=== PATIENT | male | born 1930 | race Caucasian/White ===

== ENCOUNTER 2017-11-26 01:04 | Inpatient (IN) ==
--- NOTE | 2017-11-26 01:30 | ED ---
HPI General Chief complaint: Fall Stated complaint: Fall/Back Pain Time Seen by Provider: 11/26/17 01:25 Source: patient and EMS Mode of arrival: EMS History of Present Illness HPI narrative: The patient is an 87 year old male who presents to the [facility] emergency department with a history of reportedly slipping and falling when getting into the shower prior to arrival. The patient reports that he landed on his back. The patient reports having low back pain at the level of his waist. He denies having any new numbness or tingling to his extremities or weakness of his extremities. He denies hitting his head or losing consciousness. The patient was brought in by ambulance services. The patient was noted prior to arrival to have O2 saturations on room air. The patient was placed on 2 L nasal cannula O2. The patient denies having any chest pain, chest pressure, or shortness of breath. He reports that the pain in his back is an aching sensation in his 5 out of 10 in severity. The patient's recent medical history is significant for being admitted to [facility] related to a GI bleed. This occurred on November 14, 2017. He denies having any abdominal pain, nausea, vomiting, or diarrhea. He reports that his last bowel movement was 2 days ago. He denies having any blood in his stool or black or tarry stools recently. On review of systems otherwise, the patient denies having any cough or congestion, neck pain, chest pain, shortness of breath, urinary symptoms, or other neurologic symptoms. Related Data Home Medications Medication Instructions Recorded Confirmed cholecalciferol (vitamin D3) 1,000 unit PO DAILY 11/26/17 11/26/17 colestipol 3 g PO BID 11/26/17 11/26/17 cyanocobalamin (vitamin B-12) 1,000 mcg PO DAILY 11/26/17 11/26/17 gemfibrozil 600 mg PO DAILY 11/26/17 11/26/17 [id number] oil-[id number].casei 11/26/17 pantoprazole 40 mg PO BID 11/26/17 11/26/17 sucralfate 1 g PO QID 11/26/17 11/26/17 Allergies Allergy/AdvReac Type Severity Reaction Status Date / Time No Known Allergies Allergy Uncoded 01/20/16 11:18 Review of Systems ROS Unobtainable All other systems reviewed negative except as stated in HPI [facility] Medical History Medical History GI bleed (Acute) Hypercholesteremia (Acute) Hypertension (Acute) Surgical History Surgical History H/O right knee surgery (Acute) S/P cataract surgery (Acute) Social History Social History Substance History: No History of Abuse Smoking Status: Never smoker How Often Do You Have a Drink Containing Alcohol: Never Immunization History Tetanus Immunization: >5 Years Hx Influenza Vaccine This Season: Yes Exam Const General: cooperative, no acute distress and well developed Nutritional Appearance: well nourished Orientation: alert, awake and oriented x3 HENMT Head: normocephalic and atraumatic Nose: no nasal discharge and no epistaxis Mouth: moist mucous membranes Eyes Sclera: normal sclerae Pupils: PERRL Neck Neck: trachea midline and no JVD Resp Effort & Inspection: no use of accessory muscles Auscultation: crackles and other (The patient is noted to have crackles audible in the left lower lung base, no wheezes or rales. No accessory muscle use noted. No conversational dyspnea.) Cardio Rate: regular rate Rhythm: regular rhythm Heart Sounds: murmur (1/6 systolic murmur audible, no gallops or rubs) systolic GI Inspection: non-distended Palpation: soft, no hepatosplenomegaly and tender (Patient reports having some tenderness just below his ventral abdominal hernia. The patient has a ventral abdominal hernia that is easily reducible in the center and just to the left of the umbilicus) Auscultation: normal bowel sounds Back/Spine/Pelvis Back: no CVA tenderness Cervical Spine: normal cervical lordosis and No cervical spinal tenderness Thoracic/Lumbar Spine: No thoracic spinal tenderness, No lumbar spinal tenderness and other (The patient reports tenderness on palpation along bilateral lower lumbar paraspinal musculature and overlying the upper portion of the sacrum bilaterally. There is no erythema or ecchymosis. No step-off or crepitus.) Skin General: dry skin (warm) Neuro General: alert, awake and oriented x3 Cranial Nerves: CN's II-XI intact bilaterally Speech: speech normal Motor: strength 5/5 throughout and no movement abnormalities noted Sensory Exam: no sensory deficits noted Extrem General: normal to inspection, no clubbing, no cyanosis and edema (1+ pitting edema bilateral lower extremities, reportedly chronic and no worse than usual) Laterality: bilaterally Psych Mood: congruent mood Affect: normal affect Judgment: judgment good Course Consultations Consultation #1: The patient's case including history, pertinent physical examination findings, and laboratory studies were discussed with Dr. Junior. It was agreed that the patient would be admitted to the hospitalist service. Time: 03:49 Initial Documented Vital Signs Temperature 97.6 F 11/26/17 01:12 Pulse Rate 84 11/26/17 01:12 Respiratory Rate 20 11/26/17 01:12 Blood Pressure 128/59 L 11/26/17 01:12 Pulse Oximetry 94 L 11/26/17 01:12 Last Documented Vital Signs Temperature 97.6 F 11/26/17 01:12 Pulse Rate 83 11/26/17 03:55 Respiratory Rate 18 11/26/17 03:55 Blood Pressure 155/67 H 11/26/17 03:55 Pulse Oximetry 98 11/26/17 03:55 Medical Decision Making MDM Narrative Medical decision making narrative: During the course of the patient's emergency department visit, the patient's history, examination, and differential diagnosis were reviewed with the patient. The patient was placed on a cardiac specialist with oximetry and frequent blood pressure monitoring. The patient had IV access obtained and blood work sent for analysis. The diagnostic evaluation was started regarding this fall and low back pain. The patient was initially provided normal saline 500 mL bolus 1. Laboratory studies are remarkable for a white count of 7, hemoglobin is 8.3, platelets are 240 with 86.4 neutrophils, 3 myelocytes, PT 11.8, PTT 25.2, chemistry is remarkable for a troponin I of less than 0.02, sodium 134, glucose 113, protein corrected calcium is elevated at 12.6, GFR 25, creatinine 2.5, BUN 76, alk phos 155, albumin 2.5, lipase 84, magnesium 2.2. The patient has laboratory studies available from his recent admission to [facility] N a pack at the bedside. The patient's creatinine was last noted to be 1.11 on November 17, hemoglobin last 9.7. Chest x-ray shows no acute cardiopulmonary disease. CT scan of the T-spine shows degenerative changes, no other acute abnormality, CT scan of the lumbar spine shows fracture deformity at L2 vertebral body with invagination superior endplate and no retropulsion. Multiple lucent and sclerotic regions consistent with osseous metastatic disease. The patient denies any known prior history of metastatic cancer. He does however report that 8 months ago he had a rectal cancer scraped by Dr. White. The patient's results were discussed with the patient, including the plan of care. I explained that further testing and/ or monitoring is indicated based on the patient's history, examination, and/ or laboratory findings. Therefore, I recommended admission for additional evaluation. The patient expressed understanding and was agreeable with this plan. The patient was admitted to the hospital in stable condition and sent to a bed under the care of the [facility] service. Differential Diagnosis Differential Diagnosis: T-spine fracture, versus lumbar spine fracture, versus contusion Medical Records Medical records reviewed: Yes I reviewed the patient's medical records. Lab Data Lab results reviewed: Yes I reviewed the patient's lab results. Result diagrams: 11/26/17 01:30 11/26/17 01:30 Lab Results 11/26/17 11/26/17 11/26/17 Range/Units 01:30 01:30 01:30 WBC 7.0 (4.0-11.0) th/mm3 RBC 2.66 L (4.50-5.90) mil/mm3 Hgb 8.3 L (13.0-17.0) gm/dL Hct 24.4 L (39.0-51.0) % MCV 91.7 (80.0-100.0) fL MCH 31.2 (27.0-34.0) pg MCHC 34.0 (32.0-36.0) % RDW 14.5 (11.6-17.2) % Plt Count 240 (150-450) th/mm3 MPV 8.1 (7.0-11.0) fL Prelim Diff (Auto) Slide review pending Neut % (Auto) 86.4 H (16.0-70.0) % Lymph % (Auto) 4.2 L (9.0-44.0) % [place] % (Auto) 7.8 (0.0-8.0) % Eos % (Auto) 1.1 (0.0-4.0) % Baso % (Auto) 0.5 (0.0-2.0) % Neut # (Auto) 6.1 (1.8-7.7) th/mm3 Lymph # (Auto) 0.3 L (1.0-4.8) th/mm3 [place] # (Auto) 0.5 (0.0-0.9) th/mm3 Eos # (Auto) 0.1 (0.0-0.4) th/mm3 Baso # (Auto) 0.0 (0.0-0.2) th/mm3 WBC Differential Manual diff final Seg Neuts % (Manual) 74 H (16-70) % Band Neuts % (Manual) 7 H (0-6) % Lymphocytes % (Manual) 6 L (9-44) % Monocytes % (Manual) 9 H (0-8) % Eosinophils % (Manual) 1 (0-4) % Myelocytes % (Man) 3 H (0-0) % Abs Neuts (Manual) 5.9 (1.8-7.7) th/mm3 Differential Comment . Platelet Estimate Normal (Normal) Platelet Morphology Normal (Normal) Ovalocytes 1+ H (None) PT (9.8-11.6) sec INR Ratio APTT (24.3-30.1) sec Sodium 134 L (136-145) meq/L Potassium 4.6 (3.5-5.1) meq/L Chloride 99 (98-107) meq/L Carbon Dioxide 23.9 (21.0-32.0) meq/L Anion Gap 11 (5-15) meq/L BUN 76 H (7-18) mg/dL Creatinine 2.50 H (0.60-1.30) mg/dL Estimated GFR 25 L (>89) mL/min Random Glucose 113 H (74-106) mg/dL Calcium 12.4 H* (8.5-10.1) mg/dL Prot Corrected Calcium 12.6 H* (8.5-10.1) mg/dL Magnesium 2.2 (1.5-2.5) mg/dL Total Bilirubin 0.4 (0.2-1.0) mg/dL AST 24 (15-37) U/L ALT 22 (12-78) U/L Alkaline Phosphatase 155 H (45-117) U/L Total Creatine Kinase 61 (39-308) U/L Troponin I Less than 0.02 L (0.02-0.05) ng/mL B-Natriuretic Peptide 75 (0-100) pg/mL Total Protein 7.0 (6.4-8.2) g/dL Albumin 2.5 L (3.4-5.0) g/dL Lipase 84 (73-393) U/L 11/26/17 Range/Units 02:30 WBC (4.0-11.0) th/mm3 RBC (4.50-5.90) mil/mm3 Hgb (13.0-17.0) gm/dL Hct (39.0-51.0) % MCV (80.0-100.0) fL MCH (27.0-34.0) pg MCHC (32.0-36.0) % RDW (11.6-17.2) % Plt Count (150-450) th/mm3 MPV (7.0-11.0) fL Prelim Diff (Auto) Neut % (Auto) (16.0-70.0) % Lymph % (Auto) (9.0-44.0) % [place] % (Auto) (0.0-8.0) % Eos % (Auto) (0.0-4.0) % Baso % (Auto) (0.0-2.0) % Neut # (Auto) (1.8-7.7) th/mm3 Lymph # (Auto) (1.0-4.8) th/mm3 [place] # (Auto) (0.0-0.9) th/mm3 Eos # (Auto) (0.0-0.4) th/mm3 Baso # (Auto) (0.0-0.2) th/mm3 WBC Differential Seg Neuts % (Manual) (16-70) % Band Neuts % (Manual) (0-6) % Lymphocytes % (Manual) (9-44) % Monocytes % (Manual) (0-8) % Eosinophils % (Manual) (0-4) % Myelocytes % (Man) (0-0) % Abs Neuts (Manual) (1.8-7.7) th/mm3 Differential Comment Platelet Estimate (Normal) Platelet Morphology (Normal) Ovalocytes (None) PT 11.8 H (9.8-11.6) sec INR 1.2 Ratio APTT 25.2 (24.3-30.1) sec Sodium (136-145) meq/L Potassium (3.5-5.1) meq/L Chloride (98-107) meq/L Carbon Dioxide (21.0-32.0) meq/L Anion Gap (5-15) meq/L BUN (7-18) mg/dL Creatinine (0.60-1.30) mg/dL Estimated GFR (>89) mL/min Random Glucose (74-106) mg/dL Calcium (8.5-10.1) mg/dL Prot Corrected Calcium (8.5-10.1) mg/dL Magnesium (1.5-2.5) mg/dL Total Bilirubin (0.2-1.0) mg/dL AST (15-37) U/L ALT (12-78) U/L Alkaline Phosphatase (45-117) U/L Total Creatine Kinase (39-308) U/L Troponin I (0.02-0.05) ng/mL B-Natriuretic Peptide (0-100) pg/mL Total Protein (6.4-8.2) g/dL Albumin (3.4-5.0) g/dL Lipase (73-393) U/L Imaging Data Radiologist's impression: Chest X-Ray 11/26/17 01:27 CONCLUSION: No acute cardiopulmonary disease. Lumbar Spine CT 11/26/17 01:27 CONCLUSION: 1. Mild fracture deformity of the L2 vertebral body with invagination superior endplate and no retropulsion. 2. Multiple lucent and sclerotic regions consistent with osseous metastatic disease. 3. Moderate central canal stenosis at L4-5 secondary to disc protrusion versus bulge and degenerative change involving the facet joints. Thoracic Spine CT 11/26/17 01:27 CONCLUSION: 1. No acute fracture or malalignment. 2. Multiple subtle lytic lesions most characteristic of metastatic disease.. 3. Disc osteophyte complex at C6-7 which appears unchanged from the prior thoracic CT. Discharge Plan Discharge Disposition Patient Disposition: 30 Still Patient Discharge Details Diagnosis: Metastatic disease, Fall, Compression fracture of L2, ELIAS (acute kidney injury) , Hypercalcemia Physicians Team ED Provider: Anamaria Funez Primary Care Provider: Ora Manley Attending Provider: Mariposa Lynne Other Providers: Octavio Garay ; Shannan Campbell Discharge Interventions Interventions: ED Discharge Assessment Last Done: 11/26/17 06:07 Status ED Status: Left Department Discharge Information Discharge Date/Time: 11/26/17 05:30
[2017-11-26 01:56] LABS: Baso % (Auto) 0.5 % (0.0-2.0); Eos # (Auto) 0.1 th/mm3 (0.0-0.4); Eos % (Auto) 1.1 % (0.0-4.0); Hematocrit 24.4 % (39.0-51.0); Hemoglobin 8.3 gm/dL (13.0-17.0); Lymph # (Auto) 0.3 th/mm3 (1.0-4.8); Lymph % (Auto) 4.2 % (9.0-44.0); Mean Corpuscular Hemoglobin 31.2 pg (27.0-34.0); Mean Corpuscular Volume 91.7 fL (80.0-100.0); Mean Platelet Volume 8.1 fL (7.0-11.0); Mono # (Auto) 0.5 th/mm3 (0.0-0.9); Mono % (Auto) 7.8 % (0.0-8.0); Neut # (Auto) 6.1 th/mm3 (1.8-7.7); Neut % (Auto) 86.4 % (16.0-70.0); Platelet Count 240 th/mm3 (150-450); Red Blood Count 2.66 mil/mm3 (4.50-5.90); Red Cell Distribution Width 14.5 % (11.6-17.2)
--- NOTE | 2017-11-26 02:02 | XR ---
EXAM DATE: 11/26/2017 1:55 AM EDT AGE/SEX: 87 years / Male INDICATIONS: Fall today, back and chest pain. CLINICAL DATA: This is the patient's initial encounter. Patient reports that signs and symptoms have been present for 1 day and indicates a pain score of 4/10. MEDICAL/SURGICAL HISTORY: None. None. COMPARISON: No prior exams available for comparison. FINDINGS: A single AP view of the chest demonstrates the lungs to be symmetrically aerated without evidence of mass, infiltrate or effusion. The cardiomediastinal contours are unremarkable. Osseous structures a re intact. Mild atherosclerotic changes present in the aorta with calcification. CONCLUSION: No acute cardiopulmonary disease. Electronically signed by: Sanket Peres MD 11/26/2017 2:00 AM EDT
[2017-11-26 02:23] LABS: Anion Gap 11 meq/L (5-15)
[2017-11-26 02:26] LABS: Eosinophils 1 % (0-4); Lymphocytes 6 % (9-44); Monocytes 9 % (0-8); Myelocytes 3 % (0-0)
[2017-11-26 02:27] LABS: Platelet Estimate Normal (Normal); Platelet Morphology Normal (Normal)
[2017-11-26 02:28] LABS: Ovalocytes 1+
[2017-11-26 02:29] LABS: Alanine Aminotransferase 22 U/L (12-78); Albumin 2.5 g/dL (3.4-5.0); Alkaline Phosphatase 155 U/L (45-117); Aspartate Aminotransferase 24 U/L (15-37); Blood Urea Nitrogen 76 mg/dL (7-18); Calcium 12.4 mg/dL (8.5-10.1); Carbon Dioxide 23.9 meq/L (21.0-32.0); Chloride 99 meq/L (98-107); Glomerular Filtration Rate 25 mL/min (>89); Glucose,Random 113 mg/dL (74-106); Lipase 84 U/L (73-393); Magnesium 2.2 mg/dL (1.5-2.5); Potassium 4.6 meq/L (3.5-5.1); Sodium 134 meq/L (136-145)
[2017-11-26 02:31] LABS: Creatine Kinase 61 U/L (39-308)
[2017-11-26] MEDS ORDERED: Sodium Chlor 0.9% Inj 500 ML IV.SIG ONE (02:40)
[2017-11-26 02:52] LABS: Activated Partial Thrombo Time 25.2 sec (24.3-30.1); INR 1.2 Ratio; Prothrombin Time 11.8 sec (9.8-11.6)
--- NOTE | 2017-11-26 03:11 | CT ---
EXAM DATE: 11/26/2017 2:36 AM EDT AGE/SEX: 87 years / Male INDICATIONS: Trauma; fall. CLINICAL DATA: This is the patient's initial encounter. Patient reports that signs and symptoms have been present for 1 day and indicates a pain score of 8/10. MEDICAL/SURGICAL HISTORY: Hypertension. Hypercholesterolemia. None. RADIATION DOSE: 16.46 CTDI (mGy) ; Combined studies COMPARISON: No prior exams available for comparison. TECHNIQUE: Contiguous axial images were acquired using a multirow detector CT scanner without contra st. Multiplanar reconstruction in the sagittal and coronal planes was performed. Using automated exp osure control and adjustment of the mA and/or kV according to patient size, radiation dose was kept a s low as reasonably achievable to obtain optimal diagnostic quality images. DICOM format image data is available electronically for review and comparison. FINDINGS: Vertebrae: Normal vertebral body height. On the sagittal images there is a subtle lucent area involv ing the T12 vertebral body. There is mild patchy osteopenia. Discs: Mild degenerative changes are present. Alignment: Normal. No subluxation. The axial images demonstrate no acute fracture or malalignment. There is an abnormal lucency appearin g region involving the right posterior half of the T12 vertebral body best seen on axial image #119. There is also expansile lytic lesion involving the transverse process of the T4 vertebra. This is bes t seen on axial image #36. There is a subtle span sial apparent lytic area involving the left transve rse process of the T8 vertebral body. Degenerative disc changes are noted with posterior disc osteoph yte complex again noted at the C6-7 level. There is also expansile lesion involving the left 10th rib is partially visualized. CONCLUSION: 1. No acute fracture or malalignment. 2. Multiple subtle lytic lesions most characteristic of metastatic disease.. 3. Disc osteophyte complex at C6-7 which appears unchanged from the prior thoracic CT. Electronically signed by: Sanket Peres MD 11/26/2017 3:10 AM EDT
--- NOTE | 2017-11-26 03:20 | CT ---
EXAM DATE: 11/26/2017 2:33 AM EDT AGE/SEX: 87 years / Male INDICATIONS: Trauma; fall. CLINICAL DATA: This is the patient's initial encounter. Patient reports that signs and symptoms have been present for 1 day and indicates a pain score of 8/10. MEDICAL/SURGICAL HISTORY: Hypertension. Hypercholesterolemia. None. RADIATION DOSE: 16.46 CTDI (mGy) ; Combined studies COMPARISON: No prior exams available for comparison. TECHNIQUE: Contiguous axial images were acquired with a multirow detector CT scanner without contras t. Multiplanar reconstructions in the sagittal and coronal plane were also performed. Using automate d exposure control and adjustment of the mA and/or kV according to patient size, radiation dose was k ept as low as reasonably achievable to obtain optimal diagnostic quality images. DICOM format image data is available electronically for review and comparison. FINDINGS: Vertebrae: There is mild invagination of the superior endplate of L2 with ill-defined fracture lines . Is a focal area of lucency involving the anterior lower vertebral body. There is patchy sclerosis a nd lucency involving the L4 vertebra. There is also an area of lucency involving the T12. There is pa tchy lucency and sclerosis involving the upper sacrum. There are destructive change involving the upp er sacrum. Discs: There is mild disc space narrowing and hypertrophic changes. Alignment: There is a minimal grade 1 anterior spondylolisthesis of L4 and L5 approximately 2 mm. T12-L1: The thecal sac has a normal diameter. No evidence of disc bulge or protrusion. The neural foramina are patent bilaterally. L1-L2: There is an annular disc bulge with flattening of the anterior thecal sac and no focal protru patricia. There are degenerative changes involving the facet joints. L2-L3: There is a mild annular disc bulge with flattening of the anterior thecal sac and no focal pr otrusion. There are degenerative change involving the facet joints. L3-L4: There is a mild annular disc bulge with mild flattening of the anterior thecal sac and no foc al protrusion. There are mild degenerative changes involving the facet joints. L4-L5: There is a broad-based posterior protrusion versus disc bulge with flattening of the anterior thecal sac and narrowing of the right neural foramina. Degenerative changes are noted involving the facet joints with moderate central canal stenosis. L5-S1: Mild annular disc bulge with mild flattening of the anterior thecal sac and no focal protrusi on. The neural foramina are patent. There are destructive changes involving the upper sacrum. CONCLUSION: 1. Mild fracture deformity of the L2 vertebral body with invagination superior endplate and no retro pulsion. 2. Multiple lucent and sclerotic regions consistent with osseous metastatic disease. 3. Moderate central canal stenosis at L4-5 secondary to disc protrusion versus bulge and degenerativ e change involving the facet joints. Electronically signed by: Sanket Peres MD 11/26/2017 3:19 AM EDT
[2017-11-26] MEDS ORDERED: Temazepam 15 MG Capsule PO PRN (03:59)
[2017-11-26] MEDS ORDERED: Bisacodyl 10 MG Supp RECTAL PRN (03:59)
--- NOTE | 2017-11-26 04:36 | P.HPIM ---
History of Present Illness Primary Care Physician: Ora Manley MD History of Present Illness: This is an 87-year-old male with a PMH of HTN, Hyperlipidemia, h/o Prostate CA, GI Bleed, Rectal Tumor s/p Resection, Colonic Polyp s/p Colon Resection and h/o Basal Cell CA who was brought to the ER after a fall. Much of the history is provided by patient's brother at bedside. Brother notes back pain for the last few months, states pt having to sleep sitting up due to pain. Recent admit to for GI Bleed and previously was found to have rectal cancer, s/p resection by Dr. Templeton. Brother states pt has been following routinely w/ Dr. Templeton as outpatient w/ no recurrence of cancer as far as they're aware. Today, pt was taking a shower and had sudden fall. No LOC or head trauma reported. On arrival, BP 128/59, HR 84, O2 sat 94% on RA, Afebrile. Hemoglobin 8.3, per review of labs from [facility], hemoglobin 9.7 on 11/17/2017. INR 1.2. Creatinine 2.50 , previously 1.11 on 11/17/2017. Calcium 12.4. Troponin negative. CXR no acute findings. CT L-spine mild fracture deformity of L2, no retropulsion, multiple lucent and sclerotic regions consistent with metastatic disease, moderate central canal stenosis at L4-L5. CT L-spine no acute fracture. - Diagnosis (1) Fall (2) Compression fracture of L2 (3) ELIAS (acute kidney injury) (4) Hypercalcemia (5) Metastatic disease Inpatient Certification: I certify that the inpatient services were ordered in accordance with Medicare regulations governing the order. This includes certification that hospital inpatient services are reasonable and necessary and in the case of services not specified as inpatient-only under 42 CFR 419.22(n), that they are appropriately provided as inpatient services in accordance to with the 2-midnight benchmark under 43 CFR 412.3(e) Estimated Total Length of Stay (Days): 2 Plans for Post Hospital Care: Not yet determined Review of Systems All other systems reviewed negative except as stated in HPI PMFSH - History History Provided By: Patient - Medical History Medical History: Medical History (Last Reviewed 11/26/17 @ 01:58 by Anamaria Funez MD) Hypercholesteremia Hypertension GI bleed - Surgical History Surgical History: Surgical History (Last Reviewed 11/26/17 @ 01:58 by Anamaria Funez MD) H/O right knee surgery S/P cataract surgery - Tobacco History Smoking Status: Never smoker - Alcohol History How Often Do You Have a Drink Containing Alcohol: Never - Substance Use History Substance History: No History of Abuse - Immunization History Tetanus Immunization: >5 Years Hx Influenza Vaccine This Season: Yes Medications and Allergies Active Medications: Active Medications Acetaminophen (Tylenol) 650 mg PO Q4H PRN PRN Reason: Temp > 100.4 Al Hydroxide/Mg Hydroxide (Milk Of Magnesia Liq) 30 ml PO Q12H PRN PRN Reason: Mild Constipation Bisacodyl (Dulcolax Supp) 10 mg RECTAL DAILY PRN PRN Reason: SEVERE CONSITIPATION Sodium Chloride (Ns Inj) 1,000 mls @ 100 mls/hr IV.CONT .Q10H IFEANYI Lactulose (Lactulose Liq) 30 ml PO DAILY PRN PRN Reason: SEVERE CONSITIPATION Ondansetron HCl (Zofran Odt) 4 mg PO Q6H PRN PRN Reason: NAUSEA OR VOMITING Senna/Docusate Sodium (Mago-Colace) 1 tab PO BID IFEANYI Sennosides (Senokot) 17.2 mg PO Q12H PRN PRN Reason: Moderate Constipation Sodium Chloride (Ns Flush) 2 ml IV.FLUSH BID IFEANYI Sodium Chloride (Ns Flush) 2 ml IV.FLUSH PRN PRN PRN Reason: FLUSH AFTER USING IV ACCESS Temazepam (Restoril) 15 mg PO HS PRN PRN Reason: INSOMNIA Allergies Allergy/AdvReac Type Severity Reaction Status Date / Time No Known Allergies Allergy Uncoded 01/20/16 11:18 Exam Vital signs: Vital Signs 11/26/17 01:12 11/26/17 03:55 Temperature 97.6 F Pulse Rate 84 83 Respiratory Rate 20 18 Blood Pressure 128/59 L 155/67 H Pulse Oximetry 94 L 98 Intake & Output 11/25/17 11/25/17 11/26/17 06:59 18:59 06:59 Weight 71.214 kg Narrative: PE: GENERAL: Very pleasant elderly white male in no acute distress. Brother at bedside. HEENT: PERRLA, EOMI. No scleral icterus or conjunctival pallor. No lid lag or facial droop. CARDIOVASCULAR: Regular rate and rhythm. No obvious murmurs to auscultation. No chest tenderness to palpation. RESPIRATORY: No obvious rhonchi or wheezing. Clear to auscultation. Breath sounds equal bilaterally. GASTROINTESTINAL: Abdomen soft, non-tender, nondistended. BS normal. MUSCULOSKELETAL: Extremities without clubbing, cyanosis, or edema. No obvious deformities. Lumbar spine tenderness to palpation, decreased movement due to pain. NEUROLOGICAL: Awake, alert and oriented x4. No focal neurologic deficits. Moving both upper and lower extremities spontaneously. Results - Labs CBC & Chem 7: 11/26/17 01:30 11/26/17 01:30 Labs: Short CBC 11/26/17 Range/Units 01:30 WBC 7.0 (4.0-11.0) th/mm3 Hgb 8.3 L (13.0-17.0) gm/dL Hct 24.4 L (39.0-51.0) % Plt Count 240 (150-450) th/mm3 BMP 11/26/17 01:30 Sodium 134 L Potassium 4.6 Chloride 99 Carbon Dioxide 23.9 BUN 76 H Creatinine 2.50 H Calcium 12.4 H* Cardiac Enzymes 11/26/17 Range/Units 01:30 Total Creatine Kinase 61 (39-308) U/L Troponin I Less than 0.02 L (0.02-0.05) ng/mL Liver Function 11/26/17 Range/Units 01:30 Total Bilirubin 0.4 (0.2-1.0) mg/dL AST 24 (15-37) U/L ALT 22 (12-78) U/L Alkaline Phosphatase 155 H (45-117) U/L Albumin 2.5 L (3.4-5.0) g/dL - Imaging Impressions Chest X-Ray 11/26/17 01:27 CONCLUSION: No acute cardiopulmonary disease. Lumbar Spine CT 11/26/17 01:27 CONCLUSION: 1. Mild fracture deformity of the L2 vertebral body with invagination superior endplate and no retropulsion. 2. Multiple lucent and sclerotic regions consistent with osseous metastatic disease. 3. Moderate central canal stenosis at L4-5 secondary to disc protrusion versus bulge and degenerative change involving the facet joints. Thoracic Spine CT 11/26/17 01:27 CONCLUSION: 1. No acute fracture or malalignment. 2. Multiple subtle lytic lesions most characteristic of metastatic disease.. 3. Disc osteophyte complex at C6-7 which appears unchanged from the prior thoracic CT. Caprini VTE Risk Assessment Caprini VTE Risk Assessment: No/Low Risk (score <= 1) Caprini Risk Assessment Model: Point Value = 1 Point Value = 2 Point Value = 3 Point Value = 5 Age 41-60 Minor surgery BMI > 25 kg/m2 Swollen legs Varicose veins or History of unexplained or recurrent spontaneous Oral contraceptives or hormone replacement Sepsis (< 1 month) Serious lung disease, including pneumonia (< 1 month) Abnormal pulmonary function Acute myocardial infarction Congestive heart failure (< 1 month) History of inflammatory bowel disease Medical patient at bed rest Age 61-74 Arthroscopic surgery Major open surgery (> 45 min) Laparoscopic surgery (> 45 min) Malignancy Confined to bed (> 72 hours) Immobilizing plaster cast Central venous access Age >= 75 History of VTE Family history of VTE Factor V Leiden Prothrombin [id number] Lupus anticoagulant Anticardiolipin antibodies Elevated serum homocysteine Heparin-induced thrombocytopenia Other congenital or acquired thrombophilia Stroke (< 1 month) Elective arthroplasty Hip, pelvis, or leg fracture Acute spinal cord injury (< 1 month) Prophylaxis Regimen: Total Risk Factor Score Risk Level Prophylaxis Regimen 0-1 Low Early ambulation 2 Moderate Order ONE of the following: *Sequential Compression Device (SCD) *Heparin 5000 units SQ BID 3-4 Higher Order ONE of the following medications: *Heparin 5000 units SQ TID *Enoxaparin/Lovenox 40 mg SQ daily (WT < 150 kg, CrCl > 30 mL/min) *Enoxaparin/Lovenox 30 mg SQ daily (WT < 150 kg, CrCl > 10-29 mL/min) *Enoxaparin/Lovenox 30 mg SQ BID (WT < 150 kg, CrCl > 30 mL/min) AND/OR *Sequential Compression Device (SCD) 5 or more Highest Order ONE of the following medications: *Heparin 5000 units SQ TID (Preferred with Epidurals) *Enoxaparin/Lovenox 40 mg SQ daily (WT < 150 kg, CrCl > 30 mL/min) *Enoxaparin/Lovenox 30 mg SQ daily (WT < 150 kg, CrCl > 10-29 mL/min) *Enoxaparin/Lovenox 30 mg SQ BID (WT < 150 kg, CrCl > 30 mL/min) AND *Sequential Compression Device (SCD) Assessment and Plan - Assessment (1) Fall Code(s): W19.XXXA - Unspecified fall, initial encounter Status: Acute (2) Compression fracture of L2 Code(s): S32.020A - Wedge compression fracture of second lumbar vertebra, initial encounter for closed fracture Status: Acute (3) ELIAS (acute kidney injury) Code(s): N17.9 - Acute kidney failure, unspecified Status: Acute (4) Hypercalcemia Code(s): E83.52 - Hypercalcemia Status: Acute (5) Metastatic disease Code(s): C79.9 - Secondary malignant neoplasm of unspecified site Status: Acute - Plan A/P: 1. Fall: s/p mechanical fall in shower, no head trauma or LOC reported. 2. L2 CxFx: secondary to above. CT L-Spine w/ mild L2 fracture deformity, no retropulsion, images reviewed. PT for eval/tx. TLSO brace. 3. Metastatic Disease: CT L-Spine w/ multiple lucent and sclerotic regions consistent w/ metastatic disease, unclear primary. H/o Prostate CA 15yrs ago, recent Rectal Tumor s/p resection which brother states was malignant, but reports no recurrence. Consult Oncology for further evaluation/ recommendations. 4. Hypercalcemia: Ca 12.4, secondary to severe dehydration, IVF, repeat labs today, monitor I/O. 5. ELIAS: Creatinine 2.50, previously 1.11 on 11/17/17 per review of FH labs, IVF for hydration, monitor I/O, check U/a for possible UTI. 6. DVT Prophylaxis: SCD/Teds 7. Social work for d/c planning as needed 8. Case discussed w/ ER physician at length, labs/records/imaging reviewed by me.
[2017-11-26] MEDS: Acetaminophen 325 MG Tablet PO PRN ×2 (05:30→10:51)
[2017-11-26 07:42] LABS: Albumin 2.2 g/dL (3.4-5.0); Potassium 4.2 meq/L (3.5-5.1); Total Protein 6.2 g/dL (6.4-8.2)
[2017-11-26 07:48] LABS: Calcium 11.6 mg/dL (8.5-10.1)
--- NOTE | 2017-11-26 08:14 | P.CON ---
History of Present Illness Service: Hematology/oncology Consult date: 11/26/17 Requesting Physician: Belkis Junior Reason for Consult: Suspected metastatic disease to the lumbar and thoracic spine. Primary Care Provider: Ora Manley MD Chief Complaint: Back pain. History of Present Illness: Mr. Burrell is an 87-year-old man who presented to [facility] on 11/25/2017 after falling. The patient himself is unable to provide much of the history, I believe he was given pain medication shortly before I walked in the room. He drifts in and out of sleep and often falls asleep mid sentence. Most of the history is being obtained from the electronic health record. The patient fell at home and was brought in by his cousin with whom he lives. The patient underwent imaging studies of his lumbar thoracic spine on 11/26/2017 at about 1:30 AM, he was found to have lytic and sclerotic lesions involving his lumbar and sacral spine as well as pelvis and to a lesser degree his thoracic spine. Concern is for underlying metastatic disease from an epithelial primary such as prostate carcinoma. There is also some concern of possible underlying plasma cell disorder such as multiple myeloma. The patient was noted to have hypercalcemia at the time of presentation. As far as significant medical comorbid conditions ago the patient reportedly was diagnosed some years ago with colon cancer, this is early stage and he underwent surgical resection. The patient denies any history of prostate cancer , he reports having had skin cancer involving his nose and left side of the forehead. The patient does tell me he is never , he has no children his next of kin is his cousin with whom he lives. Review of Systems other (Difficult to obtain full history and review of systems due to sedation.) Comments: A full review of systems was difficult to obtain due to the patient's sedation at this time. The patient however did broadly answer questions regarding the following symptoms: He denies difficulty breathing. He denies chest pain. He denies weakness of his legs. He denies having had any overt bleeding. He does report back pain. PMFSH - History History Provided By: Patient - Medical History Medical History: Medical History (Last Reviewed 11/26/17 @ 01:58 by Anamaria Funez MD) Hypercholesteremia Hypertension GI bleed - Surgical History Surgical History: Surgical History (Last Reviewed 11/26/17 @ 01:58 by Anamaria Funez MD) H/O right knee surgery S/P cataract surgery - Tobacco History Smoking Status: Never smoker - Alcohol History How Often Do You Have a Drink Containing Alcohol: Never - Substance Use History Substance History: No History of Abuse - Immunization History Tetanus Immunization: >5 Years Hx Influenza Vaccine This Season: Yes Medications and Allergies Active Medications: Active Medications Acetaminophen (Tylenol) 650 mg PO Q4H PRN PRN Reason: Temp > 100.4 Last Admin: 11/26/17 05:30 Dose: 650 mg Al Hydroxide/Mg Hydroxide (Milk Of Magnesia Liq) 30 ml PO Q12H PRN PRN Reason: Mild Constipation Bisacodyl (Dulcolax Supp) 10 mg RECTAL DAILY PRN PRN Reason: SEVERE CONSITIPATION Sodium Chloride (Ns Inj) 1,000 mls @ 100 mls/hr IV.CONT .Q10H IFEANYI Lactulose (Lactulose Liq) 30 ml PO DAILY PRN PRN Reason: SEVERE CONSITIPATION Ondansetron HCl (Zofran Odt) 4 mg PO Q6H PRN PRN Reason: NAUSEA OR VOMITING Senna/Docusate Sodium (Mago-Colace) 1 tab PO BID IFEANYI Sennosides (Senokot) 17.2 mg PO Q12H PRN PRN Reason: Moderate Constipation Sodium Chloride (Ns Flush) 2 ml IV.FLUSH BID IFEANYI Sodium Chloride (Ns Flush) 2 ml IV.FLUSH PRN PRN PRN Reason: FLUSH AFTER USING IV ACCESS Temazepam (Restoril) 15 mg PO HS PRN PRN Reason: INSOMNIA Allergies Allergy/AdvReac Type Severity Reaction Status Date / Time No Known Allergies Allergy Uncoded 01/20/16 11:18 Home Medications Medication Instructions Recorded Confirmed Type cholecalciferol (vitamin D3) 1,000 unit PO DAILY 11/26/17 11/26/17 History colestipol 3 g PO BID 11/26/17 11/26/17 History cyanocobalamin (vitamin B-12) 1,000 mcg PO DAILY 11/26/17 11/26/17 History gemfibrozil 600 mg PO DAILY 11/26/17 11/26/17 History bdml1-vih-yvm-fish oil-L.casei 11/26/17 History pantoprazole 40 mg PO BID 11/26/17 11/26/17 History sucralfate 1 g PO QID 11/26/17 11/26/17 History Physical Exam Vital signs: Vital Signs 11/26/17 01:12 11/26/17 03:55 11/26/17 05:14 Temperature 97.6 F 97.6 F Pulse Rate 84 83 87 Respiratory Rate 20 18 20 Blood Pressure 128/59 L 155/67 H 184/76 H Pulse Oximetry 94 L 98 97 Intake & Output 11/25/17 11/26/17 11/26/17 18:59 06:59 18:59 Weight 73.9 kg Other: Date of Last Bowel Movement 11/24/17 Weight On Admission 73.9 kg - Constitutional no acute distress, somnolent, obtunded Comments: Appears sedated. - Routine HEENT Exam Head: Present: normocephalic, atraumatic Eye: Present: EOMI, PERRL ENT: Present: mucous membranes moist - Routine Neck Exam Present: supple. Absent: JVD, lymphadenopathy - Routine Respiratory Exam Present: CTA bilaterally. Absent: accessory muscle use Comments: Poor inspiratory effort, decreased bibasilar breath sounds. No rales, rhonchi, wheezes or crepitus. - Routine Cardiovascular Exam Present: RRR, S1, S2. Absent: murmur, gallop, rubs, S3, S4 - Routine Abdominal Exam Present: soft, normoactive bowel sounds. Absent: tenderness, distended, rebound , guarding, mass - Routine Skin Exam Present: intact - Routine Neurological Exam Present: CN II-XII intact. Absent: sensory deficit, motor deficit Moves all 4 limbs spontaneous bleed. Falls asleep during mid sentence. - Detailed Neurological Exam: Coma Scale Eye Opening: Spontaneous - Routine Psychiatric Exam Present: unable to assess Comments: Unable to fully assess due to sedation. Assessment and Plan - Plan 87-year-old man presents the hospital after fall, I evaluation the emergency department CT imaging of the lumbar and thoracic spine indicates multiple subtle lytic lesions most characteristic of metastatic disease, fracture deformity of the L2 vertebral body was also identified. Patient was noted on lab work to have hypercalcemia with an elevated creatinine, albumin level is low and the patient's also noted to be anemic. The oncology/hematology service is been asked to see him for further workup and management of what is suspected to be either a plasma cell disorder such as multiple myeloma or extensive metastatic malignancy. The patient does have a remote history of adenocarcinoma of the colon which is reportedly in remission. Recommendations: 1. Extensive bony metastatic disease: Obtain PSA levels, obtain serum protein electrophoresis, serum immunofixation and CEA levels. Eventually he will require an image guided biopsy to confirm diagnosis. 2. Hypercalcemia: Likely related to hypercalcemia of malignancy, I will obtain a PTH level. Due to his renal function and apparent improvement already in hypercalcemia with hydration alone I would recommend discontinuing hydration for now as opposed to treating him with bisphosphonate therapy. Normal saline 100 cc/h is a reasonable infusion rate for the time being. 3. Eventually, systemic staging studies will also be required. Oncology will follow along with you. Additional recommendations will be made as additional results are reported.
[2017-11-26] MEDS: Senna/Docusate Sodium 8.6/50 MG Tablet PO SCH ×2 (10:06→21:31)
[2017-11-26] MEDS: Sod Chloride 0.9% Inj 1,000 ML IV.CONT SCH (10:18)
[2017-11-26 11:38] LABS: Bacteria,Urine Rare /hpf; Bilirubin,Urine Negative (Negative); Clarity,Urine Clear (Clear); Color,Urine Yellow (Yellw/Straw); Glucose,Urine (UA) Negative (Negative); Hyaline Casts,Urine 1 /lpf (0-3); Leukocyte Esterase,Urine Negative (Negative); Nitrite,Urine Negative (Negative); Specific Gravity,Urine 1.008 (1.002-1.035)
[2017-11-26 12:30] LABS: Kappa Lambda Ratio 1.43 (1.57-3.93)
[2017-11-26 15:35] LABS: Albumin 2.3 g/dL (3.4-5.0); Calcium 11.8 mg/dL (8.5-10.1); Carbon Dioxide 25.6 meq/L (21.0-32.0); Potassium 4.2 meq/L (3.5-5.1); Total Protein 6.8 g/dL (6.4-8.2)
--- NOTE | 2017-11-26 17:22 | P.PNADD ---
Addendum to Inpatient Note Reason for Addendum: Additional Documentation Additional information: cousin- is POA S> patient is a 87 years old male admitted for generalized pain 2 weeks ago complaining of back pain progrssively worse with poor po cousin provided most of the history went to [facility] first week October 2017- was told that he had compressed vertebra - no mention of cancer - an EGD done - showed a gastric Ulcer - GI was Dr. Masterson - sent home with PPI and Tramadol for the pain history of prostate Cancer S/P radiation therapy - urologist is Dr. Wilson - checked annually - aptient denies any urinary symptoms History of colon cancer s/p surgery 20 years ago - Dr. Templeton- CRS about less than a year ago- DX with rectal cancer which initially presented as abscess - Dr. Templeton removed it - per cousin blood work is done annually and reportedly normal now presenting with back pain that presented about 2 weeks - 3 weeks ago- prior to this was up and ambulating cousins states patient with poor po intake and on evaluation here with Lytic lesion in thoracic spine O> Physical Exam- awake, oriented to person and place grossly no CN deficits bilateral good hand rolloff driver moves both LE decrease strength, sensory intact gait tsting deferred A/P Decrease in MS likely from ELIAS and hypercalcemia- likely from malignancy and poor po Back pain from Metastatic Lytic thoracic spine disease - primary either recurrent colorectal cancer vs prostate cancer - seen by Dr. Garay - CEA- markedly elevated 879 - PSA still pending - continue on IVF, ff CMP - will get a head CT - Percocet prn for pain - PT.OT consult - speech therapy consult - Paste Up Worker consult for diet - poor po - will d/w Dr. Garay- and defer to him for further work up - patient appears frail History of Gastric ulcer S/P EGD recently per POA at [facility] 2 weeks ago - restart his Protonix and sucralfate - get records Anemia likely chronic - check iron studies recent PUD diagnosis - start on PPI and sucralfate- home meds as above Nutriotinist consult- for diet recommendation ELIAS r/o underlying CKI HYprcalcemia - ff BMP - continue IVF fluids Hold chenmical prophylaxis - for now- unclear if with ? history of GI B 2 weeks ago - with recent EGD ? ulcer ulcer DX - will need to get records from [facility] TEDs/SCDs for DVT prophylaxis d/w cousin who is POA- work up in progress- states he can't believe this metastasis- as he was just seen 2 weeks ago at [facility] this was never mentioned -
--- NOTE | 2017-11-26 21:17 | CT ---
EXAM DATE: 11/26/2017 8:18 PM EDT AGE/SEX: 87 years / Male INDICATIONS: Cephalgia. CLINICAL DATA: This is the patient's initial encounter. Patient reports that signs and symptoms have been present for 1 day and indicates a pain score of 3/10. MEDICAL/SURGICAL HISTORY: Hypertension. None. RADIATION DOSE: 45.48 CTDI (mGy) COMPARISON: No prior exams available for comparison. TECHNIQUE: CT of the head without contrast. Using automated exposure control and adjustment of the mA and/or kV according to patient size, radiation dose was kept as low as reasonably achievable to ob tain optimal diagnostic quality images. DICOM format image data is available electronically for revi ew and comparison. FINDINGS: Cerebrum: The ventricles are normal for age. No evidence of midline shift, mass lesion, hemorrhage or acute infarction. No extraaxial fluid collections are seen. Posterior Fossa: The cerebellum and brainstem are intact. The 4th ventricle is midline. The cerebe llopontine angle is unremarkable. Extracranial: The visualized portion of the orbits is intact. Skull: The calvaria is intact. No evidence of skull fracture. CONCLUSION: 1. No acute intracranial abnormalities. . Electronically signed by: Matheus Pandey MD 11/26/2017 9:15 PM EDT
[2017-11-26] MEDS: Sucralfate 1 GM Tablet PO SCH (21:31)
[2017-11-27 04:38] LABS: Free PSA/PSA Ratio 0 ratio
[2017-11-27 08:05] LABS: Baso % (Auto) 0.5 % (0.0-2.0); Eos # (Auto) 0.1 th/mm3 (0.0-0.4); Eos % (Auto) 1.3 % (0.0-4.0); Hematocrit 23.3 % (39.0-51.0); Hemoglobin 8.3 gm/dL (13.0-17.0); Lymph # (Auto) 0.5 th/mm3 (1.0-4.8); Lymph % (Auto) 7.8 % (9.0-44.0); Mean Corpuscular HGB Conc 35.7 % (32.0-36.0); Mean Corpuscular Volume 92.4 fL (80.0-100.0); Mean Platelet Volume 7.6 fL (7.0-11.0); Mono # (Auto) 0.6 th/mm3 (0.0-0.9); Mono % (Auto) 9.3 % (0.0-8.0); Neut # (Auto) 5.3 th/mm3 (1.8-7.7); Neut % (Auto) 81.1 % (16.0-70.0); Platelet Count 236 th/mm3 (150-450); Red Blood Count 2.52 mil/mm3 (4.50-5.90); Red Cell Distribution Width 14.7 % (11.6-17.2); White Blood Count 6.5 th/mm3 (4.0-11.0)
--- NOTE | 2017-11-27 08:13 | P.PNONC ---
Subjective Interval history: Patient seen and examined this morning, vital signs, labs, medications reviewed. Patient's power of district attorney Thaddeus is at bedside. Patient's power of district attorney indicates the patient underwent CT imaging of the abdomen pelvis in early September 2017 in the outpatient setting. The scans were reviewed, patient was found to have a mass involving the left suprahilar lung concerning for a bronchogenic malignancy. When his CT chest dating back to the summer 2016 was reviewed there were no such lesions identified. Subjectively; the patient denies acute complaints this morning, he tells me he has been trying to get help to sit up in bed. He does have some back pain when he tries to move but when he lay still he has really no pain. He is definitely more awake and alert this morning. Objective Vital Signs/Intake & Output: Vital Signs 11/26/17 12:00 11/26/17 19:04 11/26/17 20:00 Temperature 97.5 F L 98.0 F 97.2 F L Pulse Rate 75 79 79 Respiratory Rate 18 18 18 Blood Pressure 138/63 127/60 132/62 Pulse Oximetry 97 93 L 94 L 11/26/17 22:00 11/27/17 00:00 11/27/17 04:00 Temperature 97.6 F 97.6 F Pulse Rate 76 72 80 Respiratory Rate 19 19 Blood Pressure 145/66 H 109/54 L Pulse Oximetry 95 91 L Intake & Output 11/26/17 11/27/17 11/27/17 18:59 06:59 18:59 Intake Total 480 / 480 Balance 480 / 480 Weight 74.4 kg Intake: Oral 480 / 480 Other: # Voids 400 # Urine Diapers 2 Date of Last Bowel Movement 11/24/17 11/24/17 Result Diagrams: 11/26/17 01:30 11/26/17 14:31 Laboratory Results: Laboratory Results - last 24 hr 11/26/17 11/26/17 11/26/17 10:55 11:07 11:07 Sodium Potassium Chloride Carbon Dioxide Anion Gap BUN Creatinine Estimated GFR Random Glucose Calcium Prot Corrected Calcium Total Bilirubin AST ALT Alkaline Phosphatase Total Protein Total Protein (PEP) 6.2 L Albumin Albumin (PEP) 2.65 L Albumin/Globulin Ratio 0.75 L Donyc-2-Fcuhopyvd 0.49 H Wesgr-7-Dktrnnbkv 1.07 H Beta Globulins 1.13 H Gamma Globulins 0.86 Carcinoembryonic Ag Free PSA Less than 0.1 Total PSA Less than 0.1 PSA Free/Total Ratio 0 Urine Color Yellow Urine Clarity Clear Urine pH 5.0 Ur Specific [place] 1.008 Urine Protein Negative Urine Glucose (UA) Negative Urine Ketones Negative Urine Occult Blood Small H Urine Nitrate Negative Urine Bilirubin Negative Urine Urobilinogen Less than 2 Ur Leukocyte Esterase Negative Urine RBC 1 Urine WBC 1 Urine Bacteria Rare H Hyaline Casts 1 Micro UA Comment Culture not ind Urine Culture Comments Culture not ind IgG IgA IgM [place]/Lambda Ratio [place] Light Chain Anal Lambda Light Chain Anal 11/26/17 11/26/17 11/26/17 11:07 11:07 14:31 Sodium 139 Potassium 4.2 Chloride 105 Carbon Dioxide 25.6 Anion Gap 8 BUN 61 H Creatinine 1.92 H Estimated GFR 33 L Random Glucose 115 H Calcium 11.8 H* Prot Corrected Calcium 12.1 H* Total Bilirubin 0.4 AST 31 ALT 25 Alkaline Phosphatase 162 H Total Protein 6.8 D Total Protein (PEP) Albumin 2.3 L Albumin (PEP) Albumin/Globulin Ratio Rztxr-5-Vqmuinhay Cdghg-9-Swsikqdzt Beta Globulins Gamma Globulins Carcinoembryonic Ag 879.8 H Free PSA Total PSA PSA Free/Total Ratio Urine Color Urine Clarity Urine pH Ur Specific [place] Urine Protein Urine Glucose (UA) Urine Ketones Urine Occult Blood Urine Nitrate Urine Bilirubin Urine Urobilinogen Ur Leukocyte Esterase Urine RBC Urine WBC Urine Bacteria Hyaline Casts Micro UA Comment Urine Culture Comments IgG 750 IgA 187 IgM 76 [place]/Lambda Ratio 1.43 L [place] Light Chain Anal 186 Lambda Light Chain Anal 130 Imaging Studies: Impressions Head CT 11/26/17 00:00 CONCLUSION: 1. No acute intracranial abnormalities. . Medications: Active Medications Generic Name Dose Route Start Last Admin Trade Name Freq PRN Reason Stop Dose Admin Acetaminophen 650 mg 11/26/17 03:59 11/26/17 10:51 Tylenol PO 650 mg Q4H PRN Administration Temp > 100.4 Sodium Chloride 1,000 mls @ 100 mls/hr 11/26/17 04:00 11/26/17 10:18 Ns Inj IV.CONT 100 mls/hr .Q10H IFEANYI Administration Oxycodone/Acetaminophen 1 tab 11/26/17 16:32 11/27/17 03:00 Percocet 5/325 Mg PO 1 tab Q6H PRN Administration pain 4-10 Pantoprazole Sodium 40 mg 11/26/17 21:00 11/26/17 21:31 Protonix PO 40 mg BID IFEANYI Administration Senna/Docusate Sodium 1 tab 11/26/17 09:00 11/26/17 21:31 Mago-Colace PO 1 tab BID IFEANYI Administration Sodium Chloride 2 ml 11/26/17 09:00 11/26/17 21:34 Ns Flush IV.FLUSH 2 ml BID IFEANYI Administration Sucralfate 1 gm 11/26/17 21:00 11/26/17 21:31 Carafate PO 1 gm ACHS IFEANYI Administration Objective Remarks: GENERAL: Elderly male, laying in bed, not acutely distressed, he is awake alert and oriented. SKIN: Warm and dry. HEAD: Normocephalic. EYES: No scleral icterus. No injection or drainage. NECK: Supple, trachea midline. No JVD or lymphadenopathy. LYMPHATIC: No adenopathy. CARDIOVASCULAR: Regular rate and rhythm without murmurs. RESPIRATORY: Breath sounds equal bilaterally. No accessory muscle use. GASTROINTESTINAL: Abdomen soft, non-tender, nondistended. EXTREMITIES: No cyanosis, or edema. MUSCULOSKELETAL: Adequate muscle tone. NEUROLOGICAL: No obvious focal deficit. Awake, alert, and oriented x3. PSYCHIATRIC: Appropriate mood and affect; insight and judgment normal. Assessment/Plan - Plan Mr. Moreno is an 87-year-old man with a previous history of prostate carcinoma and history of rectal cancer, both of these were diagnosed in the remote past ( per the patient's power of district attorney over 15 years ago). His prostate carcinoma appears to be in remission based on normal PSA levels and his colon carcinoma is also likely in remission as evidenced by recent negative colonoscopies. The patient does however present to this facility with multiple bony metastatic lesions and previous CT scan of the thorax which reveals a mass involving the left suprahilar lung. It is not clear whether this suprahilar lung mass which was initially identified in early September 2017 has been pursued or biopsied. Per the patient's power of district attorney the patient was a smoker in the remote past. Additionally the patient was noted to have hypercalcemia presumably related to malignancy at the time of presentation. Initial workup including serum protein electrophoresis indicates no definite evidence as of yet for monoclonal protein. Recommendations: 1. Mass involving the left lung: Identified on outpatient CT imaging from 2017. Now associated with multifocal sclerotic and lytic metastatic disease involving multiple levels of the thoracic lumbar and sacral spine. I have requested invasive radiology to obtain tissue from 1 of these areas to help both establish diagnosis and to stage his disease. I am trying to avoid a biopsy of the tumor within the lung, this however may be necessary to complete the workup if the bone biopsy is not diagnostic. 2. Hypercalcemia malignancy: PTH level ordered. Patient will remain on IV fluids, he is already more awake and alert. Given his renal dysfunction at this point I would avoid a bisphosphonate, calcitonin is not needed at this time given his good clinical response. Once his renal function has improved I will order a modified dosing of intravenous bisphosphonate therapy such as pamidronate at 60 mg total infused over 6-8 hours. I did talk to the patient and his power of district attorney, explained to them that what the patient has at this time is likely metastatic malignancy and goals of care will be palliative. I explained to them that the most reasonable course of action may be palliation and hospice. I will however pursue diagnostic workup to confirm diagnosis.
[2017-11-27 08:39] LABS: % Iron Saturation 8.8 % (20-50); Calcium 11.3 mg/dL (8.5-10.1); Carbon Dioxide 26.9 meq/L (21.0-32.0); Potassium 4.4 meq/L (3.5-5.1)
[2017-11-27] MEDS: Senna/Docusate Sodium 8.6/50 MG Tablet PO SCH ×2 (08:42→20:16)
[2017-11-27] MEDS: Sucralfate 1 GM Tablet PO SCH ×4 (08:43→20:16)
[2017-11-27 09:06] LABS: Eosinophils 1 % (0-4); Lymphocytes 3 % (9-44); Metamyelocytes 1 % (0-1); Monocytes 5 % (0-8); Myelocytes 2 % (0-0); Promyelocyte 3 % (0-0)
[2017-11-27 09:07] LABS: Platelet Estimate Normal (Normal)
[2017-11-27 09:08] LABS: Platelet Morphology Normal (Normal)
--- NOTE | 2017-11-27 13:23 | P.DIET ---
Nutritional Evaluation Type of nutrition evaluation: initial Nutrition screening: Poor PO Intake, MDC Subjective Subjective Comments: Pt reports a good appetite and no recent wt loss Objective - Diagnosis L2 cxfx, Hypercalcemia, ELIAS, Metastatic Disease - Objective [place] body weight: 62 kg (Ht from prev admission, current HT is inaccurate) % IBW: 120 Body Weight Used for Calculations: Actual (73.9kg) Energy Needs - Lower Range (kCal/kg): 25 Energy Needs - Upper Range (kCal/kg): 30 Lower Limit kCal/kg (kCals): 1,848 Upper Limit kCal/kg (kCals): 2,217 Lower Limit Protein Factor (Grams per Kg): 1.1 Upper Limit Protein Factor (Grams per Kg): 1.3 Lower Protein Needs (Protein): 81 Upper Protein Needs (Protein): 96 Fluid Factor (ml/kg): 25 Estimated Fluid Needs (ml): 1,848 Dietitian Reviewed in Medical Record: Current diet, Curent medications, Intake & Output, Labs, Medical history Objective Comments: PMH: HTN, Hyperlipidemia, h/o Prostate CA, GI Bleed, Rectal Tumor s/p Resection , Colonic Polyp s/p Colon Resection and h/o Basal Cell CA Labs include: Hgb 8.3, Hct 23.3, Cr 1.53, Ca 11.3, Iron 21 Assessment Assessment: Pt at nutritional risk r/t current clinical status. Pt admitted after a fall, appears to have possible malignant mass in lung. Pt's nutritional needs as assessed above. Since admission, pt has taken in 50-100% of his meals. Will continue to monitor and provide supplements if needed. Recommendations: Regular diet - monitor po intake for adequacy Dietitian to Monitor: Lab values, Intake & Output, Diet tolerance, Weight change , PO Intake, Medical course
[2017-11-27] MEDS: ceFAZolin 2 GM Premix Inj 2 GM/50 ML PIGGYBACK IV.SIG SCH (15:53)
--- NOTE | 2017-11-27 16:08 | P.PN ---
Physical Exam Vital signs: Vital Signs 11/26/17 19:04 11/26/17 20:00 11/26/17 22:00 Temperature 98.0 F 97.2 F L Pulse Rate 79 79 76 Respiratory Rate 18 18 Blood Pressure 127/60 132/62 Pulse Oximetry 93 L 94 L 11/27/17 00:00 11/27/17 04:00 11/27/17 08:00 Temperature 97.6 F 97.6 F 98.1 F Pulse Rate 72 80 87 Respiratory Rate 19 19 20 Blood Pressure 145/66 H 109/54 L 133/60 Pulse Oximetry 95 91 L 90 L 11/27/17 12:00 Temperature 97.5 F L Pulse Rate 85 Respiratory Rate Blood Pressure 141/63 H Pulse Oximetry 93 L Intake & Output 11/26/17 11/27/17 11/27/17 18:59 06:59 18:59 Intake Total 480 / 480 Balance 480 / 480 Weight 74.4 kg Intake: Oral 480 / 480 Other: # Voids 400 # Urine Diapers 2 Date of Last Bowel Movement 11/24/17 11/24/17 11/24/17 Narrative: Subjective: In bed appears chronically ill. Patient says however he feel simprpved since yesterday. no cp, sob cough. No n/v/d/c. no and pain No headache. Feels weak generalized PE: GENERAL: Very pleasant elderly white male in no acute distress. Brother at bedside. HEENT: PERRLA, EOMI. No scleral icterus or conjunctival pallor. No lid lag or facial droop. CARDIOVASCULAR: Regular rate and rhythm. No obvious murmurs to auscultation. No chest tenderness to palpation. RESPIRATORY: No obvious rhonchi or wheezing. Clear to auscultation. Breath sounds equal bilaterally. GASTROINTESTINAL: Abdomen soft, non-tender, nondistended. BS normal. MUSCULOSKELETAL: Extremities without clubbing, cyanosis, or edema. No obvious deformities. Lumbar spine tenderness to palpation, decreased movement due to pain. NEUROLOGICAL: Awake, alert and oriented x4. No focal neurologic deficits. Moving both upper and lower extremities spontaneously. Assessment and Plan 1. Fall: s/p mechanical fall in shower, no head trauma or LOC reported. 2. L2 CxFx: secondary to above. CT L-Spine w/ mild L2 fracture deformity, no retropulsion, images reviewed. PT for eval/tx. TLSO brace. 3. Metastatic Disease: CT L-Spine w/ multiple lucent and sclerotic regions consistent w/ metastatic disease, unclear primary. H/o Prostate CA 15yrs ago, recent Rectal Tumor s/p resection which brother states was malignant, but reports no recurrence. Consult Oncology for further evaluation/ recommendations. Seen by Dr Hill, recommends palliative care , patient is candidate for hospice. Work up for diagnosis with biopsy in progress. 4. Hypercalcemia: Ca 12.4 on admission, secondary to severe dehydration, malignancy , continue IVF, repeat labs today, monitor I/O. 5. ELIAS: Creatinine 2.50, on admission, previously 1.11 on 11/17/17 per review of labs, IVF for hydration, monitor I/O, check U/a for possible UTI. DVT Prophylaxis: SCD/Teds CM consulted for d/c planning as needed Discussed with the patient. nurse Results - Labs CBC & Chem 7: 11/27/17 07:02 11/27/17 07:02 Laboratory Results - last 24 hr 11/26/17 11/26/17 11/27/17 11:07 11:07 07:02 WBC 6.5 RBC 2.52 L Hgb 8.3 L Hct 23.3 L MCV 92.4 MCH 33.0 MCHC 35.7 RDW 14.7 Plt Count 236 MPV 7.6 Prelim Diff (Auto) Slide review pending Neut % (Auto) 81.1 H Lymph % (Auto) 7.8 L [place] % (Auto) 9.3 H Eos % (Auto) 1.3 Baso % (Auto) 0.5 Neut # (Auto) 5.3 Lymph # (Auto) 0.5 L [place] # (Auto) 0.6 Eos # (Auto) 0.1 Baso # (Auto) 0.0 WBC Differential Manual diff final Seg Neuts % (Manual) 72 H Band Neuts % (Manual) 12 H Lymphocytes % (Manual) 3 L Monocytes % (Manual) 5 Eosinophils % (Manual) 1 Basophils % (Manual) 1 Metamyelocytes % (Man) 1 Myelocytes % (Man) 2 H Promyelocytes % (Man) 3 H Abs Neuts (Manual) 5.9 Differential Comment . Platelet Estimate Normal Platelet Morphology Normal Sodium Potassium Chloride Carbon Dioxide Anion Gap BUN Creatinine Estimated GFR Random Glucose Calcium Iron TIBC % Saturation Ferritin Albumin (PEP) 2.65 L Albumin/Globulin Ratio 0.75 L Yxngo-2-Ozkgaeixl 0.49 H Vipnw-9-Nxhibruit 1.07 H Beta Globulins 1.13 H Gamma Globulins 0.86 PEP Pathologist Comment Free PSA Less than 0.1 Total PSA Less than 0.1 PSA Free/Total Ratio 0 PTH Intact 11/27/17 11/27/17 07:02 09:52 WBC RBC Hgb Hct MCV MCH MCHC RDW Plt Count MPV Prelim Diff (Auto) Neut % (Auto) Lymph % (Auto) [place] % (Auto) Eos % (Auto) Baso % (Auto) Neut # (Auto) Lymph # (Auto) [place] # (Auto) Eos # (Auto) Baso # (Auto) WBC Differential Seg Neuts % (Manual) Band Neuts % (Manual) Lymphocytes % (Manual) Monocytes % (Manual) Eosinophils % (Manual) Basophils % (Manual) Metamyelocytes % (Man) Myelocytes % (Man) Promyelocytes % (Man) Abs Neuts (Manual) Differential Comment Platelet Estimate Platelet Morphology Sodium 142 Potassium 4.4 Chloride 106 Carbon Dioxide 26.9 Anion Gap 9 BUN 45 H Creatinine 1.53 H Estimated GFR 43 L Random Glucose 88 Calcium 11.3 H Iron 21 L TIBC 239 L % Saturation 8.8 L Ferritin 719 H Albumin (PEP) Albumin/Globulin Ratio Xgdxi-4-Aqorkykgu Ksjac-9-Kgytfvzfo Beta Globulins Gamma Globulins PEP Pathologist Comment Free PSA Total PSA PSA Free/Total Ratio PTH Intact Less than 6.3 L - Imaging Impressions Head CT 11/26/17 00:00 CONCLUSION: 1. No acute intracranial abnormalities. . Assessment and Plan - Assessment (1) Fall Code(s): W19.XXXA - Unspecified fall, initial encounter Status: Acute (2) Compression fracture of L2 Code(s): S32.020A - Wedge compression fracture of second lumbar vertebra, initial encounter for closed fracture Status: Acute (3) ELIAS (acute kidney injury) Code(s): N17.9 - Acute kidney failure, unspecified Status: Acute (4) Hypercalcemia Code(s): E83.52 - Hypercalcemia Status: Acute (5) Metastatic disease Code(s): C79.9 - Secondary malignant neoplasm of unspecified site Status: Acute
[2017-11-27] MEDS: Sod Chloride 0.9% Inj 1,000 ML IV.CONT SCH (20:17)
[2017-11-28] MEDS: Sod Chloride 0.9% Inj 1,000 ML IV.CONT SCH ×2 (05:41→17:55)
[2017-11-28] MEDS: Sucralfate 1 GM Tablet PO SCH ×4 (08:08→20:35)
[2017-11-28] MEDS ORDERED: fentaNYL Citrate Inj 250 MCG/5 ML Ampul ONE (13:32)
[2017-11-28] MEDS: ceFAZolin 2 GM Premix Inj 2 GM/50 ML PIGGYBACK IV.SIG SCH (13:45)
[2017-11-28] MEDS: Senna/Docusate Sodium 8.6/50 MG Tablet PO SCH ×2 (14:10→20:35)
--- NOTE | 2017-11-28 16:24 | IR ---
EXAM DATE: 11/28/2017 3:50 PM EDT AGE/SEX: 87 years / Male INDICATIONS: 87-year-old male with history of recently diagnosed diffuse metastatic osseous disease and debilitating low back pain. Patient has compression fractures at L2 and L3 with corresponding spi nous processes tenderness on physical exam. Therefore, patient presents for biopsy and cement augment ation. CLINICAL DATA: This is the patient's initial encounter. Patient reports that signs and symptoms have been present for 1 month and indicates a pain score of 8/10. MEDICAL/SURGICAL HISTORY: Hypertension. Hypercholesterolemia. GI Bleed, Prostate cancer, Recta l tumor, Colonic polyps, Left lung mass Rectal tumor resection, Colon resection COMPARISON: No prior exams available for comparison. FLUORO TIME (min): 11.3 IMAGE SERIES: 2 ACCESS SITE: SEDATION TIME (min): 75 MEDICATION(S): 5mg midazolam (Versed) IV 250mcg fentanyl (Sublimaze) IV Prophylactic antibiotics were administered with appropriate pre-procedure timing. Vancomycin within 2 hrs of procedure, Ancef (or alternative) within 1 hr of procedure. DEVICE(S): L2 6CC AvaMax bone cement L3 5CC AVAMax bone cement . . PROCEDURE: 1. Fluoroscopically-guided kyphoplasty. 2. Conscious sedation with continuous EKG and oximetry monitoring. The risks, benefits and alternatives to the procedure were explained and verbal and written consent w as obtained. The site was prepped in sterile fashion. Full sterile technique was used, including ca p, mask, sterile gloves and gown and a large sterile sheet. Hand hygiene and 2% chlorhexidine and/or betadine/alcohol prep was utilized per protocol for cutaneous antisepsis. The skin and subcutaneous tissues were infiltrated with local anesthetic solution. L2: With fluoroscopic guidance via the above described approach access was gained to the vertebral jason dy. 13-gauge core biopsies were obtained. Kyphoplasty was performed with cavity creation as above. The prescribed cement volume was placed. Post procedure images demonstrate cement confined to the ve rtebral body. L3:With fluoroscopic guidance via the above described approach access was gained to the vertebral bod y. 13-gauge core biopsies were obtained. Kyphoplasty was performed with cavity creation as above. T he prescribed cement volume was placed. Post procedure images demonstrate cement confined to the rola tebral body. Conscious sedation was performed with the prescribed dosages and duration as above in the presence of an independent trained radiology nurse to assist in the monitoring of the patient. EKG and oximetry remained stable throughout the procedure. The patient tolerated the procedure well and there were n o complications. The patient was sent to post anesthesia recovery in stable condition. CONCLUSION: 1. Uncomplicated fluoroscopic guided L2 and L3 core biopsies. 2. Uncomplicated L2 and L3 kyphoplasty. Electronically signed by: Aston Delgadillo MD 11/28/2017 4:23 PM EDT
--- NOTE | 2017-11-28 16:54 | P.PN ---
Physical Exam Vital signs: Vital Signs 11/27/17 20:00 11/28/17 00:00 11/28/17 00:02 Temperature 98.1 F 97.7 F Pulse Rate 80 97 H 89 Respiratory Rate 18 17 Blood Pressure 123/60 134/63 Pulse Oximetry 91 L 90 L 11/28/17 03:48 11/28/17 04:00 11/28/17 08:00 Temperature 98.2 F 97.7 F Pulse Rate 82 89 105 H Respiratory Rate 17 17 Blood Pressure 159/71 H 138/65 Pulse Oximetry 91 L 94 L 11/28/17 15:50 11/28/17 16:00 11/28/17 16:30 Temperature 97.9 F Pulse Rate 80 92 H 60 Respiratory Rate 20 20 Blood Pressure 180/84 H 178/77 H 177/81 H Pulse Oximetry 97 99 99 Intake & Output 11/27/17 11/28/17 11/28/17 18:59 06:59 18:59 Intake Total 690 / 690 1480 / 1480 50 / 50 Balance 690 / 690 1480 / 1480 50 / 50 Weight 47.4 kg Intake: IV 50 / 50 1000 / 1000 50 / 50 NS Inj 1,000 ML @ 100 mls/hr IV 1000 / 1000 .CONT .Q10H IFEANYI Rx#:[id number] Ancef 2 GM Premix Inj 2 gm In 50 / 50 50 / 50 50 ml @ 100 mls/hr IV.SIG DIRECTOR EMERGENCY IFEANYI Rx#:[id number] Oral 640 / 640 480 / 480 Other: # Voids 5 4 Date of Last Bowel Movement 11/24/17 11/27/17 11/27/17 # Bowel Movements 3 1 Narrative: Subjective: In bed appears chronically ill. Patient says however he feel simprpved since yesterday. no cp, sob cough. No n/v/d/c. no and pain No headache. Feels weak generalized went for bx PE: GENERAL: Very pleasant elderly white male in no acute distress. Brother at bedside. HEENT: PERRLA, EOMI. No scleral icterus or conjunctival pallor. No lid lag or facial droop. CARDIOVASCULAR: Regular rate and rhythm. No obvious murmurs to auscultation. No chest tenderness to palpation. RESPIRATORY: No obvious rhonchi or wheezing. Clear to auscultation. Breath sounds equal bilaterally. GASTROINTESTINAL: Abdomen soft, non-tender, nondistended. BS normal. MUSCULOSKELETAL: Extremities without clubbing, cyanosis, or edema. No obvious deformities. Lumbar spine tenderness to palpation, decreased movement due to pain. NEUROLOGICAL: Awake, alert and oriented x4. No focal neurologic deficits. Moving both upper and lower extremities spontaneously. Assessment and Plan 1. Fall: s/p mechanical fall in shower, no head trauma or LOC reported. 2. L2 CxFx: secondary to above. CT L-Spine w/ mild L2 fracture deformity, no retropulsion, images reviewed. PT for eval/tx. TLSO brace. 3. Metastatic Disease: CT L-Spine w/ multiple lucent and sclerotic regions consistent w/ metastatic disease, unclear primary. H/o Prostate CA 15yrs ago, recent Rectal Tumor s/p resection which brother states was malignant, but reports no recurrence. Consult Oncology for further evaluation/ recommendations. Seen by Dr Hill, recommends palliative care , patient is candidate for hospice. Work up for diagnosis with biopsy in progress. 4. Hypercalcemia: Ca 12.4 on admission, secondary to severe dehydration, malignancy , continue IVF, repeat labs today, monitor I/O. 5. ELIAS: Creatinine 2.50, on admission, previously 1.11 on 11/17/17 per review of FH labs, IVF for hydration, monitor I/O, check U/a for possible UTI. DVT Prophylaxis: SCD/Teds CM consulted for d/c planning as needed Discussed with the patient. nurse Results - Labs CBC & Chem 7: 11/27/17 07:02 11/27/17 07:02 Laboratory Results - last 24 hr 11/26/17 11:07 OMA Interpretation - Imaging Impressions Vertebroplasty 11/28/17 00:00 CONCLUSION: 1. Uncomplicated fluoroscopic guided L2 and L3 core biopsies. 2. Uncomplicated L2 and L3 kyphoplasty. Assessment and Plan - Assessment (1) Fall Code(s): W19.XXXA - Unspecified fall, initial encounter Status: Acute (2) Compression fracture of L2 Code(s): S32.020A - Wedge compression fracture of second lumbar vertebra, initial encounter for closed fracture Status: Acute (3) ELIAS (acute kidney injury) Code(s): N17.9 - Acute kidney failure, unspecified Status: Acute (4) Hypercalcemia Code(s): E83.52 - Hypercalcemia Status: Acute (5) Metastatic disease Code(s): C79.9 - Secondary malignant neoplasm of unspecified site Status: Acute
[2017-11-29] MEDS: Sod Chloride 0.9% Inj 1,000 ML IV.CONT SCH ×2 (01:06→18:57)
--- NOTE | 2017-11-29 08:27 | P.PNONC ---
Subjective Interval history: Patient seen and examined, vital signs reviewed, imaging studies and procedure notes reviewed. On 11/28/2017 patient underwent L2 vertebral body biopsy and kyphoplasty. No acute overnight events noted. Subjective: "The service here is very bad ". When asked about symptoms patient denies back pain, denies difficulty breathing. He tells me he has not gotten up out of bed. Tells me nobody came and talked about his procedure. Objective Vital Signs/Intake & Output: Vital Signs 11/28/17 15:50 11/28/17 16:00 11/28/17 16:30 Temperature 97.9 F Pulse Rate 80 92 H 60 Respiratory Rate 20 20 Blood Pressure 180/84 H 178/77 H 177/81 H Pulse Oximetry 97 99 99 11/28/17 19:10 11/28/17 20:00 11/28/17 20:34 Temperature 97.1 F L Pulse Rate 93 H 95 H Respiratory Rate 19 Blood Pressure 171/74 H Pulse Oximetry 94 L 93 L 11/28/17 23:26 11/29/17 00:00 11/29/17 04:04 Temperature 97.5 F L Pulse Rate 93 H 96 H 97 H Respiratory Rate 19 Blood Pressure 153/67 H Pulse Oximetry 93 L 11/29/17 04:59 Temperature 97.9 F Pulse Rate 95 H Respiratory Rate 19 Blood Pressure 156/68 H Pulse Oximetry 92 L Intake & Output 11/28/17 11/29/17 11/29/17 18:59 06:59 18:59 Intake Total 1050 / 1050 360 / 360 Balance 1050 / 1050 360 / 360 Weight 47.4 kg Intake: IV 1050 / 1050 NS Inj 1,000 ML @ 100 mls/hr IV 1000 / 1000 .CONT .Q10H IFEANYI Rx#:[id number] Ancef 2 GM Premix Inj 2 gm In 50 / 50 50 ml @ 100 mls/hr IV.SIG SHOE SHINER IFEANYI Rx#:[id number] Oral 360 / 360 Other: # Incontinent Voids 4 Date of Last Bowel Movement 11/27/17 11/28/17 # Bowel Movements 0 Result Diagrams: 11/27/17 07:02 11/27/17 07:02 Laboratory Results: Laboratory Results - last 24 hr 11/26/17 11:07 OMA Interpretation Imaging Studies: Impressions Vertebroplasty 11/28/17 00:00 CONCLUSION: 1. Uncomplicated fluoroscopic guided L2 and L3 core biopsies. 2. Uncomplicated L2 and L3 kyphoplasty. Medications: Active Medications Generic Name Dose Route Start Last Admin Trade Name Freq PRN Reason Stop Dose Admin Acetaminophen 650 mg 11/26/17 03:59 11/26/17 10:51 Tylenol PO 650 mg Q4H PRN Administration Temp > 100.4 Sodium Chloride 1,000 mls @ 100 mls/hr 11/26/17 04:00 11/29/17 01:06 Ns Inj IV.CONT 100 mls/hr .Q10H IFEANYI Administration Cefazolin Sodium/Dextrose 2 gm in 50 mls @ 100 mls/hr 11/27/17 15:01 14:15 Ancef 2 Gm Premix Inj IV.SIG 11/30/17 15:00 Infused SHOE SHINER IFEANYI Infusion Oxycodone/Acetaminophen 1 tab 11/26/17 16:32 11/29/17 01:05 Percocet 5/325 Mg PO 1 tab Q6H PRN Administration pain 4-10 Pantoprazole Sodium 40 mg 11/26/17 21:00 11/28/17 20:35 Protonix PO 40 mg BID IFEANYI Administration Senna/Docusate Sodium 1 tab 11/26/17 09:00 11/28/17 20:35 Mago-Colace PO 1 tab BID IFEANYI Administration Sodium Chloride 2 ml 11/26/17 09:00 11/28/17 20:35 Ns Flush IV.FLUSH 2 ml BID IFEANYI Administration Sucralfate 1 gm 11/26/17 21:00 11/28/17 20:35 Carafate PO 1 gm ACHS IFEANYI Administration Objective Remarks: GENERAL: Elderly male, laying in bed, having breakfast.. SKIN: Warm and dry, grafts on the tip of his nose and graft on the left side of his scalp. HEAD: Normocephalic. EYES: No scleral icterus. No injection or drainage. NECK: Supple, trachea midline. No JVD or lymphadenopathy. LYMPHATIC: No adenopathy. CARDIOVASCULAR: Regular rate and rhythm without murmurs. RESPIRATORY: Breath sounds equal bilaterally. No accessory muscle use. GASTROINTESTINAL: Abdomen soft, non-tender, nondistended. EXTREMITIES: No cyanosis, or edema. MUSCULOSKELETAL: Generally decreased muscle mass and tone. NEUROLOGICAL: No obvious focal deficit. Awake, alert, and oriented x3. PSYCHIATRIC: Appropriate mood and affect; insight and judgment normal. Assessment/Plan - Plan Mr. Moreno is an 87-year-old man with a previous history of prostate carcinoma and history of rectal cancer, both of these were diagnosed in the remote past ( per the patient's power of collections attorney over 15 years ago). His prostate carcinoma appears to be in remission based on normal PSA levels and his colon carcinoma is also likely in remission as evidenced by recent negative colonoscopies. The patient does however present to this facility with multiple bony metastatic lesions and previous CT scan of the thorax which reveals a mass involving the left suprahilar lung. It is not clear whether this suprahilar lung mass which was initially identified in early September 2017 has been pursued or biopsied. Per the patient's power of collections attorney the patient was a smoker in the remote past. Additionally the patient was noted to have hypercalcemia presumably related to malignancy at the time of presentation. Initial workup including serum protein electrophoresis indicates no definite evidence as of yet for monoclonal protein. Recommendations: 1. Mass involving the left lung: Identified on outpatient CT imaging from 2017. Now associated with multifocal sclerotic and lytic metastatic disease involving multiple levels of the thoracic lumbar and sacral spine. On 11/28/2017 he underwent L2 vertebral body biopsy and kyphoplasty. Pathology is pending. 2. Hypercalcemia malignancy: Calcium levels are improved, renal function is improved. PTH is suppressed. Findings consistent with hypercalcemia malignancy. Pamidronate 60 mg IV over 6 hours has been ordered. This should help further improve his calcium levels without resulting in nephrotoxicity. From an oncologic standpoint Mr. Moreno may be discharged to rehab or to home with home health care. I will arrange outpatient follow-up to discuss the results of his lumbar vertebral body biopsy. Additionally, this is the second day in a row the patient has complained about the "service" on this floor. He tells me he calls for assistance but rarely gets assistance. I have made the unit charge nurse aware and have asked the unit charge nurse to involve the nurse blogs manager of the floor as well. Per the nursing staff several team members including MAs and nurses have been in his room since 7 in the morning today to help talk to him and assist him. The patient tells me he has a right to be upset because he does not feel he is getting the care he needs. 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 At any rate, I have conveyed his concerns to the unit charge nurse.
[2017-11-29] MEDS: Senna/Docusate Sodium 8.6/50 MG Tablet PO SCH ×2 (09:41→22:20)
[2017-11-29] MEDS: Sucralfate 1 GM Tablet PO SCH ×4 (09:41→22:20)
--- NOTE | 2017-11-29 09:59 | P.PN ---
Physical Exam Vital signs: Vital Signs 11/28/17 15:50 11/28/17 16:00 11/28/17 16:30 Temperature 97.9 F Pulse Rate 80 92 H 60 Respiratory Rate 20 20 Blood Pressure 180/84 H 178/77 H 177/81 H Pulse Oximetry 97 99 99 11/28/17 19:10 11/28/17 20:00 11/28/17 20:34 Temperature 97.1 F L Pulse Rate 93 H 95 H Respiratory Rate 19 Blood Pressure 171/74 H Pulse Oximetry 94 L 93 L 11/28/17 23:26 11/29/17 00:00 11/29/17 04:04 Temperature 97.5 F L Pulse Rate 93 H 96 H 97 H Respiratory Rate 19 Blood Pressure 153/67 H Pulse Oximetry 93 L 11/29/17 04:59 11/29/17 08:00 Temperature 97.9 F 98.0 F Pulse Rate 95 H 97 H Respiratory Rate 19 16 Blood Pressure 156/68 H 155/67 H Pulse Oximetry 92 L 94 L Intake & Output 11/28/17 11/29/17 11/29/17 18:59 06:59 18:59 Intake Total 1050 / 1050 360 / 360 Balance 1050 / 1050 360 / 360 Weight 47.4 kg Intake: IV 1050 / 1050 NS Inj 1,000 ML @ 100 mls/hr IV 1000 / 1000 .CONT .Q10H IFEANYI Rx#:[id number] Ancef 2 GM Premix Inj 2 gm In 50 / 50 50 ml @ 100 mls/hr IV.SIG [employer] IFEANYI Rx#:[id number] Oral 360 / 360 Other: # Incontinent Voids 4 Date of Last Bowel Movement 11/27/17 11/28/17 # Bowel Movements 0 Narrative: Subjective: In bed appears chronically ill. Patient says however he feels back pain is improved after the procedure and weakness in his legs mostly improving. However does not want to do physical therapy today. No cp, sob, cough. No n/v/d /c. No headache. Patient complains of dry lips and dry mouth eating much PE: GENERAL: Very pleasant elderly white male in no acute distress. Brother at bedside. HEENT: PERRLA, EOMI. No scleral icterus or conjunctival pallor. No lid lag or facial droop. CARDIOVASCULAR: Regular rate and rhythm. No obvious murmurs to auscultation. No chest tenderness to palpation. RESPIRATORY: No obvious rhonchi or wheezing. Clear to auscultation. Breath sounds equal bilaterally. GASTROINTESTINAL: Abdomen soft, non-tender, nondistended. BS normal. MUSCULOSKELETAL: Extremities without clubbing, cyanosis, or edema. No obvious deformities. Lumbar spine tenderness to palpation, decreased movement due to pain. NEUROLOGICAL: Awake, alert and oriented x4. No focal neurologic deficits. Moving both upper and lower extremities spontaneously. Assessment and Plan 1. Fall: s/p mechanical fall in shower, no head trauma or LOC reported. 2. L2 CxFx: secondary to above. CT L-Spine w/ mild L2 fracture deformity, no retropulsion, images reviewed. PT for eval/tx. TLSO brace. 3. Metastatic Disease: CT L-Spine w/ multiple lucent and sclerotic regions consistent w/ metastatic disease, unclear primary. H/o Prostate CA 15yrs ago, recent Rectal Tumor s/p resection which brother states was malignant, but reports no recurrence. Consult Oncology for further evaluation/ recommendations. Seen by Dr Garay, recommends palliative care , patient is candidate for hospice. 11/28/2017 patient underwent L2 vertebral body biopsy and kyphoplasty 4. Hypercalcemia: Ca 12.4 on admission, secondary to severe dehydration, malignancy , continue IVF, repeat labs today, monitor I/O. 5. ELIAS: Creatinine 2.50, on admission, previously 1.11 on 11/17/17 per review of FH labs, IVF for hydration, monitor I/O, check U/a for possible UTI. 6. Dry mouth with Nicki. Add Magic wash 7. Dry lips. Add blistex DVT Prophylaxis: SCD/Teds CM consulted for d/c planning as needed Discussed with the patient. nurse, CHRISTIE However patient is capable to make decisions on his own Results - Labs CBC & Chem 7: 11/27/17 07:02 11/27/17 07:02 Laboratory Results - last 24 hr 11/26/17 11:07 OMA Interpretation - Imaging Impressions Vertebroplasty 11/28/17 00:00 CONCLUSION: 1. Uncomplicated fluoroscopic guided L2 and L3 core biopsies. 2. Uncomplicated L2 and L3 kyphoplasty. Assessment and Plan - Assessment (1) Fall Code(s): W19.XXXA - Unspecified fall, initial encounter Status: Acute (2) Compression fracture of L2 Code(s): S32.020A - Wedge compression fracture of second lumbar vertebra, initial encounter for closed fracture Status: Acute (3) ELIAS (acute kidney injury) Code(s): N17.9 - Acute kidney failure, unspecified Status: Acute (4) Hypercalcemia Code(s): E83.52 - Hypercalcemia Status: Acute (5) Metastatic disease Code(s): C79.9 - Secondary malignant neoplasm of unspecified site Status: Acute
[2017-11-29] MEDS ORDERED: Pamidronate Inj 60 MG in Sodium Chlor 0.9% Inj 500 ML IV.SIG ONE (10:00)
--- NOTE | 2017-11-29 11:02 | P.CONPAL ---
Consult Service: Palliative Care Requesting Physician: Laura Denny Reason for Consult: a. To assist with evaluation and management of symptoms including: b. To assist medical decision maker(s) with: better understanding of current medical conditions; weighing benefits/burdens of medical treatment options; making medical treatment decisions. Primary Care Provider: Ora Manley MD History of Present Illness History of Present Illness: This is an 87 yo male with HTN, rectal cancer s/p resection 2 months ago, remote hx prostate ca s/p radiation, remote colon ca s/p resection, BCCa, who presented to ER via EMS 11/26 after a fall in the shower. Reportedly he landed on his back. Family reported pt had complaints of back pain for the last month and that pt was having to sleep sitting up because of pain. 1 month ago pt was raking leaves and had sudden onset back pain, was told he had bulging disc. On arrival pt had decreased o2 sat, placed on 2L o2 via NC. Head CT negative, CXR no acute findings. Lumbar spine CT showed findings consistent with metastatic disease, moderate L4-5 stenosis and degenerative change, mild fracture deformity L2. Thoracic spine CT also consistent with metastatic disease. Oncology was consulted, noted hypercalcemia 12.4, elevated creatinine 2.5, anemia hgb 8.3, hypoalbuminemia 2.65 on admission; concern for plasma cell disorder vs extensive metastatic malignancy. He was admitted to [facility] for a GIB. EGD showed gastric ulcer. Reportedly pt had CT abd /pelvis 09/2017 and was found to have mass in left lung concerning for bronchogenic malignancy. CT chest summer 2016 did not show lung lesions. CEA elevated 879. Oncology recommending palliative treatment and hospice. Pt had fluoroscopic guided kyphoplasty and vertebral biopsies 11/28. Biopsy results pending. Seen in room, cousin and healthcare POAgapito Travis at bedside. On my eval pt is lethargic, drifting in and out of sleep. When awake he is appropriate and oriented but he is unable to stay awake to answer more than 1 or 2 questions intermittently. He is a limited historian and majority of hx provided by Thaddeus and the EMR. Pt is complaining of pain 7-12/07. He is on oxycodone/apa 5/ and last had 0942 this morning. He says the pain meds don't seem to help much but what he has now helps more than tramadol did. Thaddeus notes that pt being able to push and pull feet against resistance is an improvement as prior to the kyphoplasty, pt would yell if anyone touched his feet. Pt denies feeling SOB. Sat 94% on 2L o2 via NC. Function/Cognitive Trajectory: In the last month pt has been mostly confined to chair or bed d/t back pain. He has been using a rolling walker for limited ambulation. He has been sleeping in a chair b/c it's too painful for him to get out of bed, and too difficult for his caregiver to get him out of bed. Prior to this he was fairly mobile and independent, able to do yard work. Review of Systems ROS pt limited d/t lethargy. completed to best of my ability from chart, family , RN unobtainable due to mental status Constitutional: Reports weakness Eyes: Denies blind spots Ears, Nose, Mouth, and Throat: Reports abnormal hearing, Reports dry mouth, Reports other (mouth breathing) Cardiovascular: Denies chest pain Respiratory: Denies shortness of breath Gastrointestinal: Denies abdominal pain, Denies bright, red blood in stools Musculoskeletal: Reports back pain, Reports joint pain, Denies muscle weakness, Denies numbness Skin/Breast: Denies bleeding lesions Neurologic: Denies weakness Psychiatric: Denies anxiety Hematologic/Lymphatic: Denies easy bleeding PMFSH - History History Provided By: Patient (pt is limited historian), Family Member (pt and family member deny significant family hx medical problems or cancers; father lived to 90's, mother 60's they did not know cause other than "physical" ) - Medical History Medical History: Medical History (Last Updated 11/29/17 @ 12:11 by GHANSHYAM Rios) Hypercholesteremia Hypertension Lung mass Prostate cancer Rectal adenocarcinoma GI bleed - Surgical History Surgical History: Surgical History (Last Updated 11/29/17 @ 12:11 by GHANSHYAM Rios) S/P kyphoplasty H/O right knee surgery S/P cataract surgery - Tobacco History Second Hand Smoke Exposure: No Tobacco Use In Past 30 Days: No Smoking Status: Former smoker Tobacco Type: Cigarettes - Alcohol History How Often Do You Have a Drink Containing Alcohol: 4 or more times a week (2 glasses wine daily) - Substance Use History Substance History: No History of Abuse - Immunization History Tetanus Immunization: <5 Years Hx Influenza Vaccine This Season: Yes Medications and Allergies Active Medications: Active Medications Acetaminophen (Tylenol) 650 mg PO Q4H PRN PRN Reason: Temp > 100.4 Last Admin: 11/26/17 10:51 Dose: 650 mg Al Hydroxide/Mg Hydroxide (Milk Of Magnesia Liq) 30 ml PO Q12H PRN PRN Reason: Mild Constipation Bisacodyl (Dulcolax Supp) 10 mg RECTAL DAILY PRN PRN Reason: SEVERE CONSITIPATION Sodium Chloride (Ns Inj) 1,000 mls @ 100 mls/hr IV.CONT .Q10H [facility] Last Admin: 11/29/17 01:06 Dose: 100 mls/hr Cefazolin Sodium/Dextrose (Ancef 2 Gm Premix Inj) 2 gm in 50 mls @ 100 mls/hr IV.SIG PSYCHIATRY ADULT PHYSICIAN [facility] Stop: 11/30/17 15:00 Last Infusion: 11/28/17 14:15 Dose: Infused Lactulose (Lactulose Liq) 30 ml PO DAILY PRN PRN Reason: SEVERE CONSITIPATION Ondansetron HCl (Zofran Odt) 4 mg PO Q6H PRN PRN Reason: NAUSEA OR VOMITING Oxycodone/Acetaminophen (Percocet 5/325 Mg) 1 tab PO Q6H PRN PRN Reason: pain 4-10 Last Admin: 11/29/17 09:42 Dose: 1 tab Pantoprazole Sodium (Protonix) 40 mg PO BID [facility] Last Admin: 11/29/17 09:41 Dose: 40 mg Senna/Docusate Sodium (Mago-Colace) 1 tab PO BID [facility] Last Admin: 11/29/17 09:41 Dose: 1 tab Sennosides (Senokot) 17.2 mg PO Q12H PRN PRN Reason: Moderate Constipation Sodium Chloride (Ns Flush) 2 ml IV.FLUSH BID [facility] Last Admin: 11/29/17 09:42 Dose: Not Given Sodium Chloride (Ns Flush) 2 ml IV.FLUSH PRN PRN PRN Reason: FLUSH AFTER USING IV ACCESS Sucralfate (Carafate) 1 gm PO ACHS [facility] Last Admin: 11/29/17 09:41 Dose: 1 gm Temazepam (Restoril) 15 mg PO HS PRN PRN Reason: INSOMNIA Allergies Allergy/AdvReac Type Severity Reaction Status Date / Time No Known Allergies Allergy Uncoded 01/20/16 11:18 Home Medications Medication Instructions Recorded Confirmed Type calcium carbonate-vitamin D3 1 tab PO BID 11/26/17 11/26/17 History [Caltrate 600 + D] cholecalciferol (vitamin D3) 1,000 unit PO DAILY 11/26/17 11/26/17 History colestipol 3 g PO BID 11/26/17 11/26/17 History cyanocobalamin (vitamin B-12) 1,000 mcg PO DAILY 11/26/17 11/26/17 History gemfibrozil 600 mg PO DAILY 11/26/17 11/26/17 History [id number]-fish oil-L.casei 11/26/17 History pantoprazole 40 mg PO BID 11/26/17 11/26/17 History sucralfate 1 g PO QID 11/26/17 11/26/17 History Advance Directives Power of Battalion Chief: Yes (healthcare POA, 06/26/1998) Power of Battalion Chief Name: Thaddeus Tolbert Today's verbally stated goals: pain relief Ethical and Legal Issues: Cousin and caregiver Thaddeus is healthcare POA Physical Exam Vital Signs: Vital Signs - 24 hr 11/28/17 15:50 11/28/17 16:00 11/28/17 16:30 Temperature 97.9 F Pulse Rate 80 92 H 60 Respiratory Rate 20 20 Blood Pressure 180/84 H 178/77 H 177/81 H Pulse Oximetry 97 99 99 11/28/17 19:10 11/28/17 20:00 11/28/17 20:34 Temperature 97.1 F L Pulse Rate 93 H 95 H Respiratory Rate 19 Blood Pressure 171/74 H Pulse Oximetry 94 L 93 L 11/28/17 23:26 11/29/17 00:00 11/29/17 04:04 Temperature 97.5 F L Pulse Rate 93 H 96 H 97 H Respiratory Rate 19 Blood Pressure 153/67 H Pulse Oximetry 93 L 11/29/17 04:59 11/29/17 08:00 Temperature 97.9 F 98.0 F Pulse Rate 95 H 97 H Respiratory Rate 19 16 Blood Pressure 156/68 H 155/67 H Pulse Oximetry 92 L 94 L I&O: Intake & Output 11/27/17 11/28/17 11/29/17 11/30/17 06:59 06:59 06:59 06:59 Intake Total 1480 / 1480 2170 / 2170 1410 / 1410 Balance 1480 / 1480 2170 / 2170 1410 / 1410 Weight 74.4 kg 47.4 kg 47.4 kg Physical Exam: CONSTITUTIONAL/GENERAL: This is an adequately nourished patient, in no apparent distress. TUBES/LINES/DRAINS: NC, SCDs bilat SKIN: No jaundice, rashes, or lesions. Scar left hinduism. No wounds seen anteriorly. Skin temperature appropriate. Not diaphoretic. HEAD: Atraumatic. Normocephalic. EYES: Pupils constricted, reactive. Extraocular motions intact. No scleral icterus. No injection or drainage. Fundi not examined. ENT: mildly [place]. Nose without bleeding or purulent drainage. Throat without visible erythema, exudates, masses, or lesions but appears dry NECK: Trachea midline. CARDIOVASCULAR: RRR, + 2/6 systolic murmur. No JVD. Peripheral pulses symmetric. RESPIRATORY/CHEST: Symmetric, unlabored respirations. Shallow respirations. Clear to auscultation. Breath sounds equal bilaterally. GASTROINTESTINAL: Abdomen soft, non-tender, nondistended. No hepato-splenomegaly , or palpable masses. No guarding. Bowel sounds present. GENITOURINARY: Without palpable bladder distension. MUSCULOSKELETAL: Extremities without clubbing, cyanosis, or edema. No joint tenderness or effusion noted. No mottling or clubbing. NEUROLOGICAL: lethargic, drifts in and of sleep. Oriented x 4. Motor and sensory grossly within normal limits. Follows commands. Cognitively sharp. Moves all extremities. BLE strength 4/5 PSYCHIATRIC: No obvious anxiety/depression. no apparent hallucinations or other psychotic thought process. Diagnostic Tests Laboratory: Laboratory Results - last 72 hr 11/26/17 11/26/17 11/26/17 10:55 11:07 11:07 WBC RBC Hgb Hct MCV MCH MCHC RDW Plt Count MPV Prelim Diff (Auto) Neut % (Auto) Lymph % (Auto) [place]th % (Auto) Eos % (Auto) Baso % (Auto) Neut # (Auto) Lymph # (Auto) Smyth # (Auto) Eos # (Auto) Baso # (Auto) WBC Differential Seg Neuts % (Manual) Band Neuts % (Manual) Lymphocytes % (Manual) Monocytes % (Manual) Eosinophils % (Manual) Basophils % (Manual) Metamyelocytes % (Man) Myelocytes % (Man) Promyelocytes % (Man) Abs Neuts (Manual) Differential Comment Platelet Estimate Platelet Morphology Sodium Potassium Chloride Carbon Dioxide Anion Gap BUN Creatinine Estimated GFR Random Glucose Calcium Prot Corrected Calcium Iron TIBC % Saturation Ferritin Total Bilirubin AST ALT Alkaline Phosphatase Total Protein Total Protein (PEP) 6.2 L Albumin Albumin (PEP) 2.65 L Albumin/Globulin Ratio 0.75 L Ifnoo-9-Rylknofzg 0.49 H Lcwrp-2-Dbhpisbgf 1.07 H Beta Globulins 1.13 H Gamma Globulins 0.86 PEP Pathologist Comment Carcinoembryonic Ag Free PSA Less than 0.1 Total PSA Less than 0.1 PSA Free/Total Ratio 0 PTH Intact Urine Color Yellow Urine Clarity Clear Urine pH 5.0 Ur Specific [place] 1.008 Urine Protein Negative Urine Glucose (UA) Negative Urine Ketones Negative Urine Occult Blood Small H Urine Nitrate Negative Urine Bilirubin Negative Urine Urobilinogen Less than 2 Ur Leukocyte Esterase Negative Urine RBC 1 Urine WBC 1 Urine Bacteria Rare H Hyaline Casts 1 Micro UA Comment Culture not ind Urine Culture Comments Culture not ind IgG IgA IgM [place]/Lambda Ratio OMA Interpretation [place] Light Chain Anal Lambda Light Chain Anal 11/26/17 11/26/17 11/26/17 11:07 11:07 14:31 WBC RBC Hgb Hct MCV MCH MCHC RDW Plt Count MPV Prelim Diff (Auto) Neut % (Auto) Lymph % (Auto) Smyth % (Auto) Eos % (Auto) Baso % (Auto) Neut # (Auto) Lymph # (Auto) Smyth # (Auto) Eos # (Auto) Baso # (Auto) WBC Differential Seg Neuts % (Manual) Band Neuts % (Manual) Lymphocytes % (Manual) Monocytes % (Manual) Eosinophils % (Manual) Basophils % (Manual) Metamyelocytes % (Man) Myelocytes % (Man) Promyelocytes % (Man) Abs Neuts (Manual) Differential Comment Platelet Estimate Platelet Morphology Sodium 139 Potassium 4.2 Chloride 105 Carbon Dioxide 25.6 Anion Gap 8 BUN 61 H Creatinine 1.92 H Estimated GFR 33 L Random Glucose 115 H Calcium 11.8 H* Prot Corrected Calcium 12.1 H* Iron TIBC % Saturation Ferritin Total Bilirubin 0.4 AST 31 ALT 25 Alkaline Phosphatase 162 H Total Protein 6.8 D Total Protein (PEP) Albumin 2.3 L Albumin (PEP) Albumin/Globulin Ratio Mvgmd-8-Sxfiutdlc Nbyox-8-Onorzlzea Beta Globulins Gamma Globulins PEP Pathologist Comment Carcinoembryonic Ag 879.8 H Free PSA Total PSA PSA Free/Total Ratio PTH Intact Urine Color Urine Clarity Urine pH Ur Specific [place] Urine Protein Urine Glucose (UA) Urine Ketones Urine Occult Blood Urine Nitrate Urine Bilirubin Urine Urobilinogen Ur Leukocyte Esterase Urine RBC Urine WBC Urine Bacteria Hyaline Casts Micro UA Comment Urine Culture Comments IgG 750 IgA 187 IgM 76 [place]/Lambda Ratio 1.43 L OMA Interpretation [place] Light Chain Anal 186 Lambda Light Chain Anal 130 11/27/17 11/27/17 11/27/17 07:02 07:02 09:52 WBC 6.5 RBC 2.52 L Hgb 8.3 L Hct 23.3 L MCV 92.4 MCH 33.0 MCHC 35.7 RDW 14.7 Plt Count 236 MPV 7.6 Prelim Diff (Auto) Slide review pending Neut % (Auto) 81.1 H Lymph % (Auto) 7.8 L Smyth % (Auto) 9.3 H Eos % (Auto) 1.3 Baso % (Auto) 0.5 Neut # (Auto) 5.3 Lymph # (Auto) 0.5 L Smyth # (Auto) 0.6 Eos # (Auto) 0.1 Baso # (Auto) 0.0 WBC Differential Manual diff final Seg Neuts % (Manual) 72 H Band Neuts % (Manual) 12 H Lymphocytes % (Manual) 3 L Monocytes % (Manual) 5 Eosinophils % (Manual) 1 Basophils % (Manual) 1 Metamyelocytes % (Man) 1 Myelocytes % (Man) 2 H Promyelocytes % (Man) 3 H Abs Neuts (Manual) 5.9 Differential Comment . Platelet Estimate Normal Platelet Morphology Normal Sodium 142 Potassium 4.4 Chloride 106 Carbon Dioxide 26.9 Anion Gap 9 BUN 45 H Creatinine 1.53 H Estimated GFR 43 L Random Glucose 88 Calcium 11.3 H Prot Corrected Calcium Iron 21 L TIBC 239 L % Saturation 8.8 L Ferritin 719 H Total Bilirubin AST ALT Alkaline Phosphatase Total Protein Total Protein (PEP) Albumin Albumin (PEP) Albumin/Globulin Ratio Axxky-2-Yzlbouvwx Ltkrc-9-Uhgvqwpux Beta Globulins Gamma Globulins PEP Pathologist Comment Carcinoembryonic Ag Free PSA Total PSA PSA Free/Total Ratio PTH Intact Less than 6.3 L Urine Color Urine Clarity Urine pH Ur Specific [place] Urine Protein Urine Glucose (UA) Urine Ketones Urine Occult Blood Urine Nitrate Urine Bilirubin Urine Urobilinogen Ur Leukocyte Esterase Urine RBC Urine WBC Urine Bacteria Hyaline Casts Micro UA Comment Urine Culture Comments IgG IgA IgM [place]/Lambda Ratio OMA Interpretation [place] Light Chain Anal Lambda Light Chain Anal Result Diagrams: 11/27/17 07:02 11/27/17 07:02 Imaging: ITS Impressions Head CT 11/26/17 00:00 CONCLUSION: 1. No acute intracranial abnormalities. . Chest X-Ray 11/26/17 01:27 CONCLUSION: No acute cardiopulmonary disease. Lumbar Spine CT 11/26/17 01:27 CONCLUSION: 1. Mild fracture deformity of the L2 vertebral body with invagination superior endplate and no retropulsion. 2. Multiple lucent and sclerotic regions consistent with osseous metastatic disease. 3. Moderate central canal stenosis at L4-5 secondary to disc protrusion versus bulge and degenerative change involving the facet joints. Thoracic Spine CT 11/26/17 01:27 CONCLUSION: 1. No acute fracture or malalignment. 2. Multiple subtle lytic lesions most characteristic of metastatic disease.. 3. Disc osteophyte complex at C6-7 which appears unchanged from the prior thoracic CT. Vertebroplasty 11/28/17 00:00 CONCLUSION: 1. Uncomplicated fluoroscopic guided L2 and L3 core biopsies. 2. Uncomplicated L2 and L3 kyphoplasty. Procedures: 11/28 fluoroscopic kyphoplasty, biopsy vertebra Patient/Family Conference Present at Family Conference: healthcare CHRISTIE Travis Family Conference Time: 30 Family Conference Location: Bedside Issues Discussed: Pt's participation was limited d/t lethargy. * Palliative care role, purpose, approach * Additional medical, psychosocial, and spiritual history * Patients general health, functional status, and cognitive changes in the months leading up to the current hospitalization * family understanding of the current medical problems * family understanding of prognosis * Patients goals of care as best understood from conversations and values * Current medical treatment options and benefits/burdens of those options - specifically surgery, biopsies, chemo, radiation * Likely scenarios comparing ongoing aggressive care with a transition to comfort measures only and hospice - appropriate pain control may make pt unable to complete PT effectively * code status - both pt and POA request DNR - "we told them that 5 days ago" * Questions answered to the best of my ability * Palliative care contact information provided Both pt and POA verbalized comfort oriented goals with pain as the main concern. Thaddeus inquired about home health and physical therapy b/c he would be unable to care for pt if pt is unable to get out of bed. Effective management of pt's pain may make aggressive PT difficult. POA is open to discussion about hospice but not sure if they ready. Assessment and Plan - Disease Oriented Problem List (1) Metastatic disease (2) Hypercalcemia (3) Compression fracture of L2 (4) ELIAS (acute kidney injury) (5) Fall - Symptom Scale (1) Pain 0-10 Scale: Unable to quantify (2) Debility 0-10 Scale: Unable to quantify Pertinent Non-Medical Issues: Psychosocial: Never , no children. Lives at home with a cousin. Originally from [place], been in [place] 35 years. Had 3 or 4 sisters and one brothers, all . 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 Spiritual: no Legal: Pt oriented but lethargic and unable to stay awake for long. Thaddeus Didi is designated as pt's Healthcare power of deputy commonwealth's attorney. Recommend shared decision making. Ethical issues impacting care: none identified Important Contacts: healthcare POAgapito Travis Didi [phone] Prognosis: 87 yo male with distant hx prostate ca, colon ca, recent hx rectal ca s/p resection, gastric ulcer who presented with c/o back pain worse after a fall. per imaging likely has metastatic disease to spine. Has lung mass new within last year. Bx vertebra pending. Pt confined mostly to bed or chair in the last 4 weeks d/t pain. He is s/p kyphoplasty. It is not clear if he will have residual pain r/t metastatic bone lesions. It is unclear what his lifespan is but ultimately his prognosis is poor if he has metastatic disease and he is at high risk of further complications and decline. He is likely hospice appropriate. Code Status: No Code DNR Plan: - LEGAL DECISON MAKER - healthcare CHRISTIE Travis Didi - CODE STATUS- no code/DNR - GOALS - Both pt and POA verbalized comfort oriented goals with pain as the main concern. Thaddeus does have conflicting goals, inquired about home health and physical therapy b/c he would be like pt to be able to come home but he is unable to care for pt if pt is unable to get out of bed. Effective management of pt's pain may make aggressive PT difficult. POA is open to discussion about hospice. - SYMPTOMS - * pain - multifactorial. 1 month hx back pain. On admission found to have fractured vertebra as well as likely mets to spine, seen on imaging. unclear if pain is r/t fracture or mets lesions? pt rates pain 7-8/10. He is exquisitely sensitive to position changes. Says medication helps some but not completely. Effective management of pt's pain may make aggressive PT difficult; unable to do PT today. methadone could be option for intractable pain r/t mets dz to bone but per attending, this could make placement in nursing facility difficult? on oxycodone/apap 5/325 PRN q6h, last had 0900. Will change to q4h. 1 mg IV morphine now, once. * debility - 2/2 pain, back injury. s/p kyphoplasty for fracture vertebra but also has likely mets to spine. Lung mass on CT from 09/2017. * dyspnea - unclear etiology, could be shallow respirations 2/2 pain, has new lung mass, distant hx smoking. vertabra bx pending. sat 94% on 2L o2 via NC. - d/w RN, d/w attending - hospice consult pending - update @8776 - pt's pain improved and now POA asking if hospice necessary, encouraged him to proceed with consult if just for sake of information, that there was no obligation to elect hospice. - Palliative care will continue to follow during hospital course as condition evolves, to assist patient/decision-maker with understanding of medical conditions, weighing benefits/burdens of treatment options, for clarification of goals of treatment. Additionally will assist with any symptoms of palliative concern Appreciation Thank you for the opportunity to participate in the care of Ata Burrell. Attestation Attestation: To help prompt me to consider important information that might be impacting today's encounter and assessment, information from prior notes written by myself or my colleagues may have been "brought forward" into today's note. My signature on this note, however, is an attestation that I personally performed the exam, history, and/or decision-making noted today, and, unless otherwise indicated, the interactions with patient, family, and staff as well as the review of records all occurred today. I also attest that the listed assessment and stated plan reflect my best clinical judgment today based on the combination of historical information, prior notes, and today's exam/ interactions. When time spent is documented, it refers only to time spent today by the signer, or if indicated, combined time spent today by collaborating physician/nurse practitioner.
[2017-11-29] MEDS ORDERED: Morphine Sulfate Inj 2 MG/ML Vial IV.PUSH ONE (12:48)
[2017-11-29] MEDS ORDERED: Dimethicone/Oxybenzone-Padimate Lip Balm 4.25 GM Tube TOPICAL PRN (19:23)
[2017-11-29] MEDS: Nystatin/Diphenhydramine/Lidocaine Mouthwash (Adult) 120 ML Botttle SWISH-SWAL SCH (22:24)
[2017-11-30] MEDS: Sod Chloride 0.9% Inj 1,000 ML IV.CONT SCH ×2 (03:56→08:53)
--- NOTE | 2017-11-30 08:29 | P.DS ---
Date of admission: 11/26/17 04:00 Primary care physician: Ora Manley MD Brief History from admission: This is an 87-year-old male with a PMH of HTN, Hyperlipidemia, h/o Prostate CA, GI Bleed, Rectal Tumor s/p Resection, Colonic Polyp s/p Colon Resection and h/o Basal Cell CA who was brought to the ER after a fall. Much of the history is provided by patient's brother at bedside. Brother notes back pain for the last few months, states pt having to sleep sitting up due to pain. Recent admit to for GI Bleed and previously was found to have rectal cancer, s/p resection by Dr. Templeton. Brother states pt has been following routinely w/ Dr. Templeton as outpatient w/ no recurrence of cancer as far as they're aware. Today, pt was taking a shower and had sudden fall. No LOC or head trauma reported. On arrival, BP 128/59, HR 84, O2 sat 94% on RA, Afebrile. Hemoglobin 8.3, per review of labs from [facility], hemoglobin 9.7 on 11/17/2017. INR 1.2. Creatinine 2.50 , previously 1.11 on 11/17/2017. Calcium 12.4. Troponin negative. CXR no acute findings. CT L-spine mild fracture deformity of L2, no retropulsion, multiple lucent and sclerotic regions consistent with metastatic disease, moderate central canal stenosis at L4-L5. CT L-spine no acute fracture. DS: Diagnosis - Discharge Diagnosis (1) Fall Status: Acute (2) Compression fracture of L2 Status: Acute (3) ELIAS (acute kidney injury) Status: Acute (4) Hypercalcemia Status: Acute (5) Metastatic disease Status: Acute DS: Medications - Discharge Medications Prescriptions: oxycodone-acetaminophen 1 tab PO Q4H PRN #7 tab PRN Reason: pain 4-10 sennosides-docusate sodium [Senna Plus] 1 tab PO BID #60 tab DS: Summary Hospital Course: Assessment and Plan 1. Fall: s/p mechanical fall in shower, no head trauma or LOC reported. 2. L2 CxFx: secondary to above. CT L-Spine w/ mild L2 fracture deformity, no retropulsion, images reviewed. PT for eval/tx. TLSO brace. 3. Metastatic Disease: CT L-Spine w/ multiple lucent and sclerotic regions consistent w/ metastatic disease, unclear primary. H/o Prostate CA 15yrs ago, recent Rectal Tumor s/p resection which brother states was malignant, but reports no recurrence. Consult Oncology for further evaluation/ recommendations. Seen by Dr Garay, recommends palliative care , patient is candidate for hospice. 11/28/2017 patient underwent L2 vertebral body biopsy and kyphoplasty 4. Hypercalcemia: Ca 12.4 on admission, secondary to severe dehydration, malignancy , continue IVF, repeat labs today, monitor I/O. 5. ELIAS: Creatinine 2.50, on admission, previously 1.11 on 11/17/17 per review of [facility] labs, IVF for hydration, monitor I/O, check U/a for possible UTI. 6. Dry mouth with Nicki. Add Magic wash 7. Dry lips. Add blistex DVT Prophylaxis: SCD/Teds CM consulted for d/c planning as needed Discussed with the patient. nurse, CHRISTIE However patient is capable to make decisions on his own DC to hospice - Time Spent with Patient Total time spent providing and/or coordinating discharge services: Greater than 30 minutes - Quality: VTE Deep Vein Thrombosis/Pulmonary Embolism Present on Admission: No Exam Vital signs: Vital Signs 11/29/17 12:00 11/29/17 16:00 11/29/17 20:00 Temperature 98.2 F 98.5 F 97.3 F L Pulse Rate 86 92 H 103 H Respiratory Rate 12 14 18 Blood Pressure 143/63 H 160/61 H 161/73 H Pulse Oximetry 90 L 91 L 89 L Intake & Output 11/29/17 11/30/17 11/30/17 18:59 06:59 18:59 Intake Total 1520 / 1520 Balance 1520 / 1520 Intake: IV 1520 / 1520 NS Inj 1,000 ML @ 100 mls/hr IV 1000 / 1000 .CONT .Q10H IFEANYI Rx#:[id number] Other: Date of Last Bowel Movement 11/28/17 11/28/17 Narrative: GENERAL: Very pleasant elderly white male in no acute distress. Brother at bedside. HEENT: PERRLA, EOMI. No scleral icterus or conjunctival pallor. No lid lag or facial droop. CARDIOVASCULAR: Regular rate and rhythm. No obvious murmurs to auscultation. No chest tenderness to palpation. RESPIRATORY: No obvious rhonchi or wheezing. Clear to auscultation. Breath sounds equal bilaterally. GASTROINTESTINAL: Abdomen soft, non-tender, nondistended. BS normal. MUSCULOSKELETAL: Extremities without clubbing, cyanosis, or edema. No obvious deformities. Lumbar spine tenderness to palpation, decreased movement due to pain. NEUROLOGICAL: Awake, alert and oriented x4. No focal neurologic deficits. Moving both upper and lower extremities spontaneously. Results Procedures completed during hospitalization: 11/28/2017 patient underwent L2 vertebral body biopsy and kyphoplasty - Impressions ITS Impressions Head CT 11/26/17 00:00 CONCLUSION: 1. No acute intracranial abnormalities. . Chest X-Ray 11/26/17 01:27 CONCLUSION: No acute cardiopulmonary disease. Lumbar Spine CT 11/26/17 01:27 CONCLUSION: 1. Mild fracture deformity of the L2 vertebral body with invagination superior endplate and no retropulsion. 2. Multiple lucent and sclerotic regions consistent with osseous metastatic disease. 3. Moderate central canal stenosis at L4-5 secondary to disc protrusion versus bulge and degenerative change involving the facet joints. Thoracic Spine CT 11/26/17 01:27 CONCLUSION: 1. No acute fracture or malalignment. 2. Multiple subtle lytic lesions most characteristic of metastatic disease.. 3. Disc osteophyte complex at C6-7 which appears unchanged from the prior thoracic CT. Vertebroplasty 11/28/17 00:00 CONCLUSION: 1. Uncomplicated fluoroscopic guided L2 and L3 core biopsies. 2. Uncomplicated L2 and L3 kyphoplasty. Discharge Plan - Discharge Disposition Patient Disposition: [facility] Facility - Discharge Condition Condition: Serious - Discharge Order Discharge Orders: Discharge Order (Routine); Ordered 11/30/17 Ordered By: Laura Denny - Discharge Details Anticipated Discharge Date: 11/30/17 - Physicians Team Primary Care Provider: Ora Manley Attending Provider: Laura Denny Other Providers: Octavio Garay MD ; Shannan Campbell ; Brina Elizabeth MD
[2017-11-30] MEDS: Sucralfate 1 GM Tablet PO SCH ×2 (08:52→12:30)
[2017-11-30] MEDS: Nystatin/Diphenhydramine/Lidocaine Mouthwash (Adult) 120 ML Botttle SWISH-SWAL SCH ×2 (08:53→12:30)
[2017-11-30] MEDS: Senna/Docusate Sodium 8.6/50 MG Tablet PO SCH (09:40)
[2017-12-04 17:52] VITALS: BP 164/72; PULSE 124; RESP 12; TEMP 99.8; O2SAT 90
== END 2017-11-30 06:00 | disposition hospice, inpatient (51) ==
LOC: NEPE 01:04 → NEDA 04:00 → N06 05:16
PROVIDERS: ADMIT Hospitalist; ATTEND Hospitalist